=== PATIENT | female | born 1955 | race Caucasian/White ===

== ENCOUNTER 2021-12-19 13:46 | Emergency (ER) | payer OTHER, SELFPAY ==
[2021-12-19 13:56] VITALS: BP 127/69; PULSE 90; RESP 18; TEMP 36.8; O2SAT 94; BMI 30.7
--- NOTE | 2021-12-19 14:27 | ED.FALL ---
HPI - Fall <KULWANT Skinner - Last Filed: 12/19/21 15:16> General Chief Complaint: Fall Stated Complaint: fall and hit head bleeding Time Seen by Provider: 12/19/21 14:21 Source: patient Mode of arrival: Ambulatory History of Present Illness HPI Narrative: This is a pleasant 65-year-old female who presents to the emergency department stating that she tripped and fell forward onto her hands and knees and struck her right forehead on the edge of her yd waste cart. She has approximately 1 cm vertical laceration to the right forehead, states that it was bleeding quite a bit initially but applied a dressing, and is no longer bleeding. She is not on any anticoagulants, she denies any loss of consciousness, headache, difficulty concentrating, vision changes, dizziness, nausea, vomiting, weakness, seeing stars, or any other complaint. Patient states that she has a mild headache or pain at this forehead approximately 3/10. She is unsure of when her last tetanus was, she takes vitamins, Prilosec is her only medication. Patient denies any neck pain, back pain, other injury. States that her arms and legs have full range of motion without weakness. Related Data Allergies Allergy/AdvReac Type Severity Reaction Status Date / Time No Known Drug Allergies Allergy Verified 12/19/21 13:55 Review of Systems <KULWANT Skinner - Last Filed: 12/19/21 15:16> Review of Systems Narrative: General: denies fever, chills, malaise, sweats, fatigue, dizziness Head/Neck: denies headache, states that her right forehead hurts approximately 3/10, denies any neck pain, dizziness, small horizontal laceration to the lateral aspect of her right forehead Eyes: denies visual changes, eye pain Cardio: denies chest pain, palpitations, edema Respiratory: denies dyspnea, cough, orthopnea GI: denies abdominal pain, nausea, vomiting, or diarrhea : denies dysuria, hematuria, urinary retention, frequency or incontinence MSK: denies joint pain, muscle weakness Skin: denies rash, itching, skin lesions or other Neuro: denies numbness, tingling Patient History <KULWANT Skinner - Last Filed: 12/19/21 15:16> Social History Smoking Status: Never smoker Smoking Status: Never smoker alcohol intake frequency: a few times a week Substance Use Type: does not use Exam <KULWANT Skinner - Last Filed: 12/19/21 15:16> Narrative Exam Narrative: Independently reviewed vitals signs and nursing notes. General: cooperative, comfortable, in no acute distress, well developed and well groomed Head: atraumatic, symmetrical facial expressions, hematoma and small 1 cm laceration on a right lateral aspect of her forehead, laceration is horizontal, bleeding is controlled, is slight oozing from site. Neck: supple, atraumatic, without lymphadenopathy. Eyes: pupils equal round and reactive, EOMI, conjunctiva normal, patient denies any eye pain with eye movement, vision is grossly intact without any deficit Nose: nares patent, no rhinorrhea Mouth/Throat: uvula midline, moist mucus membranes Cardiovascular: regular rate and rhythm, no peripheral edema, warm extremities Respiratory: normal effort, able to speak in complete sentences, no audible wheezing, stridor, or rales. No retractions or tachypnea. MSK: moves all extremities, ambulatory w/steady gait, neurovascularly intact, no weakness Skin: brisk capillary refill, no rash, no erythema Neuro: normal speech and cognition, A&O x3, normal tone Psych: mental status is grossly normal, congruent mood, normal affect, pleasant and cooperative Initial Vital Signs Initial Vital Signs: Vital Signs Temperature 98.2 F 12/19/21 13:56 Pulse Rate 90 12/19/21 13:56 Respiratory Rate 18 12/19/21 13:56 Blood Pressure 127/69 12/19/21 13:56 Pulse Oximetry 94 12/19/21 13:56 <Eagle Ortiz MD - Last Filed: 12/23/21 07:22> Initial Vital Signs Initial Vital Signs: Vital Signs Temperature 98.2 F 12/19/21 13:56 Pulse Rate 90 12/19/21 13:56 Respiratory Rate 18 12/19/21 13:56 Blood Pressure 127/69 12/19/21 13:56 Pulse Oximetry 94 12/19/21 13:56 Procedures <KULWANT Skinner - Last Filed: 12/19/21 15:16> Laceration Repair Laceration 1: Site: face (right forehead) Side (If applicable): right Size (cm): 1 Description: linear and irregular Depth: simple, single layer Local Anesthetic: lidocaine 1%, with epi and with bicarb Amount of anesthesia used (mL): 2 Pre-repair: wound explored, irrigated extensively and deep structures intact Skin layer closed with: nylon Skin layer suture size: 6-0 Number of sutures: 2 Technique: simple, interrupted Scores <KULWANT Skinner - Last Filed: 12/19/21 15:16> [place] CT Head Rule Age <16 years old: No Patient on blood thinners: No Seizure after injury: No Exclusion: Patient NOT Excluded, Proceed to next steps GCS < 15 at 2 hr post trauma: No Suspected open or depressed skull fracture: No Any sign of basilar skull fracture (hemotympanum, raccoon eyes, Hathaway's sign, CSF alexei-/rhinorrhea): No Two or more episodes of vomiting: No Age greater or equal to 65 years: No Retrograde amnesia to the event greater or equal to 30 min: No Dangerous Mechanism (pedestrian vs. mv, occupant ejected from mv, fall from >3 ft or > 5 stairs): No Recommendation: CT unnecessary <Eagle Ortiz MD - Last Filed: 12/23/21 07:22> [place] CT Head Rule Exclusion: Patient NOT Excluded, Proceed to next steps Recommendation: CT unnecessary Course <KULWANT Skinner - Last Filed: 12/19/21 15:16> Orders Ordered: Discontinued Medications Acetaminophen (Acetaminophen 325 Mg Tablet) 975 mg PO NOW ONE Stop: 12/19/21 14:27 Last Admin: 12/19/21 14:33 Dose: 975 mg Documented by: BTKHADRA Acetaminophen (Acetaminophen 325 Mg Tablet) 975 mg PO NOW ONE Stop: 12/19/21 14:39 Last Admin: 12/19/21 14:44 Dose: Not Given Documented by: LEIGHTON Bacitracin (Bacitracin Oint 0.9 Gm Pckt) 1 applic TOP NOW ONE Stop: 12/19/21 14:27 Last Admin: 12/19/21 14:32 Dose: 1 applic Documented by: BTONER Diphtheria/Tetanus/Acell Pertussis (Tet,Diph,Pertuss(Acell),Vac/Pf 0.5 Ml Syringe) 0.5 ml IM .ONCE ONE Stop: 12/19/21 14:24 Last Admin: 12/19/21 14:32 Dose: 0.5 ml Documented by: BTONER Lidocaine/Epinephrine (Lidocaine 1% W/Epi) 1 ml SUBCUT NOW ONE Stop: 12/19/21 14:23 Last Admin: 12/19/21 14:31 Dose: 1 ml Documented by: BTONER Lidocaine/Sodium Bicarbonate (Lido 1%/Sod Bicarb 8.4% (10ml) 10 Ml Syringe) 10 ml INJ NOW ONE Stop: 12/19/21 14:23 Last Admin: 12/19/21 14:31 Dose: 10 ml Documented by: BTONER Vital Signs Vital signs: Vital Signs - 8 hr 12/19/21 13:56 12/19/21 15:02 Temperature 98.2 F Pulse Rate 90 78 Respiratory Rate 18 16 Blood Pressure 127/69 120/81 Pulse Oximetry 94 98 <Eagle Ortiz MD - Last Filed: 12/23/21 07:22> Orders Ordered: Discontinued Medications Acetaminophen (Acetaminophen 325 Mg Tablet) 975 mg PO NOW ONE Stop: 12/19/21 14:27 Last Admin: 12/19/21 14:33 Dose: 975 mg Documented by: BTONER Acetaminophen (Acetaminophen 325 Mg Tablet) 975 mg PO NOW ONE Stop: 12/19/21 14:39 Last Admin: 12/19/21 14:44 Dose: Not Given Documented by: RSTONE Bacitracin (Bacitracin Oint 0.9 Gm Pckt) 1 applic TOP NOW ONE Stop: 12/19/21 14:27 Last Admin: 12/19/21 14:32 Dose: 1 applic Documented by: BTONER Diphtheria/Tetanus/Acell Pertussis (Tet,Diph,Pertuss(Acell),Vac/Pf 0.5 Ml Syringe) 0.5 ml IM .ONCE ONE Stop: 12/19/21 14:24 Last Admin: 12/19/21 14:32 Dose: 0.5 ml Documented by: BTONER Lidocaine/Epinephrine (Lidocaine 1% W/Epi) 1 ml SUBCUT NOW ONE Stop: 12/19/21 14:23 Last Admin: 12/19/21 14:31 Dose: 1 ml Documented by: BTONER Lidocaine/Sodium Bicarbonate (Lido 1%/Sod Bicarb 8.4% (10ml) 10 Ml Syringe) 10 ml INJ NOW ONE Stop: 12/19/21 14:23 Last Admin: 12/19/21 14:31 Dose: 10 ml Documented by: ANDREY Vital Signs Vital signs: Vital Signs - 8 hr 12/19/21 13:56 12/19/21 15:02 Temperature 98.2 F Pulse Rate 90 78 Respiratory Rate 18 16 Blood Pressure 127/69 120/81 Pulse Oximetry 94 98 MDM - Fall <Ena VitalLYDIAP - Last Filed: 12/19/21 15:16> [facility] Narrative Medical decision making narrative: This is a pleasant 65-year-old female who was gardening this morning when she tripped on the curb and fell forward onto her knees and her hands striking her right forehead on her yard cart. Patient denies LOC, nausea vomiting, neck pain, vision changes, eye pain, or any other symptom. She had a small 1 cm laceration which is horizontal on her forehead, linear and slightly irregular. She has a small hematoma underneath the skin, wound was cleansed with normal saline, tetanus was updated, patient was sutured with 6 0 Ethilon x2 sutures, wound edges are well approximated. Patient understands to return to the emergency department for any worsening headache, nausea vomiting, neck pain, altered mental status, vision changes, signs of infection, or fever. She denies any of these things currently, we will have her sutures removed in 5 days, and follow-up with her primary doctor. Discussed symptoms of concussion, and things to look out for, encouraged rest, keeping her head elevated, Tylenol and ibuprofen as needed for pain/headache. Patient is appropriate and amenable to discharge home. Vital signs are stable on repeat examination is unremarkable. Patient has been informed of results. Patient has been given strict return to ER precautions for any new or worsening symptoms. Patient understands to follow up closely with outpatient providers as instructed. Patient understands plan and agrees to discharge home. All questions and concerns answered at this time. Discharge Plan Departure Patient Disposition: Home Clinical Impression: Fall Qualifiers: Encounter type: initial encounter Qualified Code(s): W19.XXXA - Unspecified fall, initial encounter Laceration of head Qualifiers: Encounter type: initial encounter Location of open wound of head: other part of head Foreign body presence: without foreign body Qualified Code(s): S01.81XA - Laceration without foreign body of other part of head, initial encounter Instructions: DI for Laceration Repair Activity Restrictions/Additional Instructions: *You have been diagnosed with a fall with a 1 cm laceration to your right forehead. Please keep this covered with a Band-Aid, you may use bacitracin or another topical antibiotic that you tolerate. Have your sutures removed in 5 days, you have 2 of them. Please shower like usual, do not scrub but it is okay to let the water over it and clean with a gentle cleanser. Please ice this area as you have a hematoma/blood under the skin, this will drain dependently. You likely have a black eye tomorrow. Please ice for 20 minutes 2 to 3 times a day for the next 1-2 days. Take Tylenol every 6 hours as needed for pain, you may take ibuprofen as well if you tolerate this okay. Please follow-up with your primary care provider for any other needs. If you have worsening headache, vomiting, signs of infection, eye pain with eye movement, vision changes, please return to the emergency department for another evaluation. If you notice that you have difficulty concentrating, brain fog, headache for persistent amount of time, this may be a concussion. Please rest, keep your head elevated for the next few days as much as possible and feel better soon. Thank you for trusting us with your care, it was a pleasure to meet you. *What to do: *Please continue to take your regular medications as directed. [ ] New medication prescriptions sent to your pharmacy: [ ] [ ] New medication written as a paper prescription [x ] No new medications given *Please follow up with your primary care provider in 2-3 days, call for an appointment. Let them know you were seen in the Emergency Department and that we asked that you be seen for follow-up. We will electronically transmit a record of today's note if your PCP is in our system *If you do not have a primary care provider please contact [phone] to establish care with one of the [facility] primary care providers. *Return to Emergency Department if you should have any new, worsening or concerning symptoms, such as [fever greater than 101F, chills, worsening pain, persistent vomiting or other bothersome symptoms] <Eagle Ortiz MD - Last Filed: 12/23/21 07:22> Cosign ED Attending Cosignature Attestation: I was immediately available in the department for consultation. This documentation has been reviewed and I agree with assessment and plan. Supervised by Eagle Ortiz MD
[2021-12-19] MEDS: LIDOCAINE 1% W/EPI 1 ML SUBCUT (14:31)
[2021-12-19] MEDS: LIDO 1%/SOD BICARB 8.4% (10ML) 10 ML SYRINGE INJ (14:31)
[2021-12-19] MEDS: TET,DIPH,PERTUSS(ACELL),VAC/PF 0.5 ML SYRINGE IM (14:32)
[2021-12-19] MEDS: BACITRACIN OINT 0.9 GM PCKT 1 APPLIC TOP (14:32)
[2021-12-19] MEDS: ACETAMINOPHEN 325 MG TABLET 975 MG PO (14:33)
--- NOTE | 2021-12-19 15:01 | PC.NURSE ---
did not see wound prior to PA suturing.
[2021-12-19 15:02] VITALS: BP 120/81; PULSE 78; RESP 16; O2SAT 98
== END 2021-12-19 15:10 | disposition home or self-care (01) ==
PROVIDERS: Emergency Provider Nurse Practitioner Critical Care Medicine
DX: S01.81XA Laceration without foreign body of other part of head, initial encounter (principal); W01.198A Fall on same level from slipping, tripping and stumbling with subsequent striking against other object, initial encounter; Y93.H2 Activity, gardening and landscaping; Z23 Encounter for immunization
CPT/HCPCS: 12011; 90471; 99283; 99284; 90715

== ENCOUNTER → 2023-07-19 15:36 | Outpatient (CLI) | payer OTHER, SELFPAY | PROVIDERS: Visit Provider Nurse Practitioner Family | DX: R30.0 Dysuria (principal) | CPT/HCPCS: 87077; 87086; 87186 ==

== ENCOUNTER → 2023-10-12 12:03 | Outpatient (CLI) | payer OTHER, SELFPAY | PROVIDERS: PCP Family Medicine; Visit Provider Nurse Practitioner Family | DX: R30.0 Dysuria (principal) | CPT/HCPCS: 87077; 87086; 87186; 87210 ==

== ENCOUNTER → 2023-11-15 14:04 | Outpatient (CLI) | payer OTHER, SELFPAY ==
[2023-11-15 14:20] LABS: Appearance Urine UA CLEAR; Bilirubin Urine UA NEGATIVE (NEGATIVE); Color Urine UA YELLOW; Glucose Urine UA NEGATIVE (Negative); Ketones Urine UA NEGATIVE (NEGATIVE); Leukocyte Esterase Urine UA 2+ (NEGATIVE); Nitrite Urine UA NEGATIVE (Negative); Occult Blood Urine UA TRACE-INTACT (Negative); Protein Urine UA NEGATIVE (Negative); Urobilinogen Urine UA 0.2 E.U./dL (0.2)
[2023-11-15 14:53] LABS: Bacteria Urine Many (>30); Culture Indicated Urine Specimen Cultured; RBC Urine None Seen (0-5/HPF); Squamous Epithelial Cell Urine None Seen (0-5/HPF); Urine Volume 10mL (spun); WBC Urine 0-1/HPF (0-5/HPF)
== END ==
PROVIDERS: PCP Family Medicine; Visit Provider Physician Assistant
DX: R30.0 Dysuria (principal)
CPT/HCPCS: 81001; 87077; 87086; 87186

== ENCOUNTER → 2023-12-11 07:58 | Outpatient (CLI) | payer OTHER, SELFPAY | PROVIDERS: PCP Family Medicine; Visit Provider Physician Assistant Medical | DX: R30.0 Dysuria (principal) | CPT/HCPCS: 87077; 87086 ==

== ENCOUNTER 2023-12-11 08:10 | Emergency (ER) | payer OTHER, SELFPAY ==
[2023-12-11 08:15] VITALS: BP 130/65; PULSE 74; RESP 18; TEMP 36.1; O2SAT 99
--- NOTE | 2023-12-11 08:41 | ED_ITS ---
HPI - General Adult General Chief complaint: Urogenital-Female Stated complaint: sent by [facility]/ Urinary retention Time Seen by Provider: 12/11/23 08:11 Source: patient Mode of arrival: Ambulatory Limitations: no limitations History of Present Illness HPI narrative: Patient is a 67-year-old female who was sent over from the walk-in clinic for evaluation of acute urinary retention. She has had issues with urinary tract infections in the past. Has currently on a daily Bactrim. Has also been treated earlier this month with a course of antibiotics. Does see urology. There was some question about potential prolapse as the cause of her issues. Back of the beginning of this month she was seen at the Urology Clinic where she had an in and out catheter because of urinary retention. She has never had an indwelling urinary catheter. She states the last time she that she urinated? normally? was 3-4 days ago. Right now she was just getting very small amounts of urine. Related Data Home Medications Medication Instructions Recorded Confirmed latanoprost 0.005 % eye drops drp EYE-BOTH 08/19/23 12/11/23 Previous Rx's Medication Instructions Recorded omeprazole 20 mg capsule,delayed 20 mg PO BID #180 caps 09/08/23 release sulfamethoxazole 800 1 tab PO DAILY #90 tabs 09/08/23 mg-trimethoprim 160 mg tablet cefdinir 300 mg capsule 300 mg PO BID #10 caps 10/13/23 nitrofurantoin macrocrystal 100 mg 100 mg PO BID #10 caps 10/14/23 capsule estradiol 2 mg (7.5 mcg/24 hour) 1 vag ring vaginal [id number] #1 ea 11/16/23 vaginal ring (Estring) Allergies Allergy/AdvReac Type Severity Reaction Status Date / Time No Known Drug Allergies Allergy Verified 12/11/23 07:56 Review of Systems Constitutional Constitutional: Reports system reviewed and no additional complaints, except as documented Gastrointestinal Gastrointestinal: Reports system reviewed and no additional complaints, except as documented Genitourinary Genitourinary: Reports system reviewed and no additional complaints, except as documented Integumentary/Breasts Skin/Breast: Reports system reviewed and no additional complaints, except as documented Patient History Social History (System 08/09/23 @ 08:17 by Shruti Kevin) Smoking Status: Never smoker Smoking Status: Never smoker alcohol intake frequency: a few times a week Substance Use Type: does not use Exam Initial Vital Signs Initial Vital Signs: Vital Signs Temperature 96.9 F L 12/11/23 08:15 Pulse Rate 74 12/11/23 08:15 Respiratory Rate 18 12/11/23 08:15 Blood Pressure 130/65 12/11/23 08:15 Pulse Oximetry 99 12/11/23 08:15 Oxygen Delivery Method Room Air 12/11/23 08:15 HENMT Head: normal to inspection and normocephalic Resp Effort & Inspection: normal respiratory effort Cardio Rate: regular rate GI Inspection: non-distended Course Orders Ordered: ED Orders 12/11/23 08:30 Urinalysis and Microscopic Stat Urine Culture Stat Vital Signs Vital signs: Vital Signs - 8 hr 12/11/23 08:15 Temperature 96.9 F L Pulse Rate 74 Respiratory Rate 18 Blood Pressure 130/65 Pulse Oximetry 99 Oxygen Delivery Method Room Air Medical Decision Making Medical Records Medical records reviewed: Yes I reviewed the patient's medical records. MDM Narrative Medical decision making narrative: Review of the medical record shows she has had Enterococcus and Klebsiella that appeared to be pansensitive. She was currently on a antibiotic. We will wait for the urine culture to resolve before treating with any antibiotics. She was retaining urine. She was nontoxic appearing. Will place a Greenberg catheter and leave in place and have her follow-up with urology. Discharge Plan Departure Patient Disposition: Home Clinical Impression: Urinary retention with incomplete bladder emptying Instructions: How to Care for Your Greenberg Catheter -- Female Activity Restrictions/Additional Instructions: I do recommend that you contact your urologist for a follow-up. We will wait for the urine culture to resolve before treating you with any antibiotics. Return to the emergency department for new or worsening symptoms. Prescriptions: No Action sulfamethoxazole-trimethoprim 800-160 mg tablet 1 tab PO DAILY Qty: 90 1RF omeprazole 20 mg capsule,delayed release(DR/EC) 20 mg PO BID Qty: 180 1RF cefdinir 300 mg capsule 300 mg PO BID Qty: 10 0RF nitrofurantoin macrocrystal 100 mg capsule 100 mg PO BID Qty: 10 0RF Rx Instructions: must administer with a meal/food Estring 2 mg (7.5 mcg /24 hour) ring 1 vag ring vaginal [id number] Qty: 1 3RF latanoprost 0.005 % drops EYE-BOTH Referrals: Laly Harvey DO [Primary Care Provider] - Stand Alone Forms: Patient Portal/API
[2023-12-11 09:40] VITALS: RESP 16; O2SAT 100
[2023-12-11 10:06] LABS: Appearance Urine UA CLOUDY; Bilirubin Urine UA NEGATIVE (NEGATIVE); Color Urine UA YELLOW; Glucose Urine UA NEGATIVE (Negative); Ketones Urine UA NEGATIVE (NEGATIVE); Leukocyte Esterase Urine UA NEGATIVE (NEGATIVE); Nitrite Urine UA POSITIVE (Negative); Occult Blood Urine UA NEGATIVE (Negative); Protein Urine UA NEGATIVE (Negative); Urobilinogen Urine UA 0.2 E.U./dL (0.2); pH Urine UA 7.5 (4.5-8.0)
[2023-12-11 10:16] LABS: Amorphous Sediment Urine 1+; Bacteria Urine Many (>30); RBC Urine None Seen (0-5/HPF); Squamous Epithelial Cell Urine None Seen (0-5/HPF); Urine Volume 10mL (spun); WBC Urine 0-1/HPF (0-5/HPF)
== END 2023-12-11 09:41 | disposition home or self-care (01) ==
PROVIDERS: Emergency Provider Emergency Medicine; PCP Family Medicine
DX: R33.9 Retention of urine, unspecified (principal); R30.0 Dysuria
CPT/HCPCS: 51702; 51798; 81001; 87077; 87086; 87186; 99283

== ENCOUNTER → 2023-12-29 08:44 | Outpatient (CLI) | payer OTHER, SELFPAY ==
--- NOTE | 2023-12-29 08:46 | DI.CT.S_ITS ---
PROCEDURE: CT KIDNEY URETER BLADDER (KUB) INDICATIONS: RENAL CALCIFICATION TECHNIQUE: Axial sections were acquired from the lung bases to the pubic symphysis. Coronal and sagittal reformats were performed. For radiation dose reduction, the following was used: automated exposure control, adjustment of mA and/or kV according to patient size. COMPARISON: [facility], CR, XR ABDOMEN 1 VIEW, 11/10/2023, 14:27. FINDINGS: Image quality: Diagnostic. Lower Chest: No significant findings. URINARY: Right Kidney: No stones or hydronephrosis. Right Ureter: No hydroureter. Left Kidney: No stones or hydronephrosis. Left Ureter: No hydroureter. Bladder: Normal wall thickness. No stones. ABDOMEN: Liver: Multiple cysts. Gallbladder: Not distended. Multiple gallstones. A larger gallstone measuring 1.5 cm. Biliary ducts: No biliary dilation. Pancreas: No ductal dilation. Spleen: Size is within normal limits. Adrenal Glands: No adrenal nodules. Stomach and Bowel: Normal colonic caliber, without significant wall thickening. Small duodenal diverticulum. A few colonic diverticuli. Normal appendix. Peritoneum: No abnormal intraperitoneal fluid. No free air. Ventral Wall: No hernia. Abdominal Nodes: No enlarged retroperitoneal or mesenteric lymph nodes. Vessels: Aorta and inferior vena cava are normal in size. PELVIS: Pelvic Organs: Anteverted uterus. Pelvic Nodes: Unremarkable. Miscellaneous: No inguinal hernias are seen. Bones: No suspicious osseous lesion. IMPRESSION: 1. No bladder or kidney stones. No hydronephrosis. 2. Multiple gallstones. Dictated by: Jay Carmona M.D. on 12/29/2023 at 9:29 Approved by: Jay Carmona M.D. on 12/29/2023 at 9:36
== END ==
LOC: CT 08:44
PROVIDERS: PCP Family Medicine; Referring Provider Physician Assistant Medical; Visit Provider Physician Assistant Medical
DX: N28.89 Other specified disorders of kidney and ureter (principal); K80.20 Calculus of gallbladder without cholecystitis without obstruction
CPT/HCPCS: 74176

== ENCOUNTER → 2023-12-29 08:46 | Outpatient (CLI) | payer OTHER, SELFPAY ==
[2023-12-29 09:41] LABS: Add Manual Diff / Slide Review NO; Basophils Absolute Auto 0 /uL (0-100); Basophils Percent Auto 0.7 % (0-2); Eosinophils Absolute Auto 200 /uL (0-450); Eosinophils Percent Auto 3.9 % (2-4); Hematocrit 41.8 % (36-46); Hemoglobin 13.9 g/dL (12.0-16.0); Lymphocytes Absolute Auto 1700 /uL (1100-4500); Lymphocytes Percent Auto 33.2 % (25-40); Mean Corpuscular HGB Conc 33.3 % (30-36); Mean Corpuscular Hemoglobin 31.3 PG (26-34); Monocytes Absolute Auto 400 /uL (0-900); Monocytes Percent Auto 8.1 % (3-14); Neutrophils Absolute Auto 2800 /uL (1500-7000); Neutrophils Percent Auto 54.1 % (50-75); Platelet Count 256 X10^3/uL (150-400); Red Blood Cell Count 4.45 X10^6/uL (4.0-5.2); Red Cell Distribution Width 14.5 % (11.6-14.8); White Blood Cell Count 5.1 X10^3/uL (4.5-11.0)
[2023-12-29 09:49] LABS: Hemoglobin A1C% w Est Avg Glu 5.6 % (4.0-6.0)
[2023-12-29 10:08] LABS: Alanine Aminotransferase 23 IU/L (<35); Albumin 4.1 g/dL (3.5-5.0); Albumin Globulin Ratio 1.5 (1.0-2.8); Alkaline Phosphatase 56 U/L (38-126); Aspartate Aminotransferase 28 IU/L (14-36); BUN Creatinine Ratio 16.7 (6-22); Bilirubin Total 0.7 mg/dL (0.2-1.3); Blood Urea Nitrogen 11 mg/dL (7-17); Calcium 9.2 mg/dL (8.4-10.2); Carbon Dioxide 25 mmol/L (22-32); Chloride 109 mmol/L (98-107); Cholesterol 258 mg/dL (140-199); Estimated Glomerular Filt Rate > 60 mL/min (>60); Globulin 2.8 g/dL (1.7-4.1); Glucose 99 mg/dL (80-110); HDL Cholesterol 82 mg/dL (40-60); HEMOLYSIS < 15 (0-50); LDL Cholesterol Calculated 162 mg/dL (<100); Potassium 4.3 mmol/L (3.4-5.1); Sodium 138 mmol/L (137-145); Total Protein 6.9 g/dL (6.3-8.2); Triglycerides 72 mg/dL (35-150)
== END ==
LOC: LAB 08:46
PROVIDERS: PCP Family Medicine; Referring Provider Family Medicine; Visit Provider Family Medicine
DX: R73.03 Prediabetes (principal)
CPT/HCPCS: 36415; 80053; 80061; 83036; 85025

== ENCOUNTER → 2023-12-30 10:58 | Outpatient (CLI) | payer OTHER, SELFPAY ==
[2023-12-31 14:01] LABS: Fecal Immunochemical Test Negative (Negative)
== END ==
PROVIDERS: PCP Family Medicine; Referring Provider Family Medicine; Visit Provider Family Medicine
DX: Z12.11 Encounter for screening for malignant neoplasm of colon (principal); R73.03 Prediabetes
CPT/HCPCS: 82274

== ENCOUNTER → 2024-04-12 07:59 | Outpatient (CLI) | payer OTHER, SELFPAY ==
--- NOTE | 2024-04-12 08:00 | DI.MG.S_ITS ---
BILATERAL DIGITAL SCREENING MAMMOGRAM 3D/2D WITH CAD: 04/12/2024 CLINICAL: Routine screening. Comparison is made to exams dated: 01/12/2023 mammogram, 06/09/2019 mammogram, and 06/16/2017 mammogram - Outside facility. There are scattered areas of fibroglandular density in both breasts (category b / 25%-50% glandular tissue). Current study was also evaluated with a Computer Aided Detection (CAD) system. There are benign calcifications in the left breast. No significant masses, calcifications, or other findings are seen in either breast. There has been no significant interval change. IMPRESSION: BENIGN There is no mammographic evidence of malignancy. A 1 year screening mammogram is recommended. Based on the Tyrer Cuzick model (a risk assessment model) the patient's lifetime risk is 5.3% and her 10 year risk is 2.8%. According to the ACR, ACS, and NCCN guidelines, an annual breast MRI exam along with mammogram is recommended if the patient's lifetime risk is 20% or greater. This exam was interpreted at Station ID: [id number]. NOTE: For mammograms, a report in lay terms will be sent to the patient. Approximately 15% of breast malignancies will not be visualized mammographically. In the management of a palpable breast mass, a negative mammogram must not discourage biopsy of a clinically suspicious lesion. Electronically Signed By: Kaia millard/michael:04/13/2024 09:57:39 letter sent: Normal Exam ACR BI-RADS Category 2: Benign Finding(s) [id number]
== END ==
PROVIDERS: PCP Family Medicine; Referring Provider Family Medicine; Visit Provider Family Medicine
DX: Z12.31 Encounter for screening mammogram for malignant neoplasm of breast (principal); R92.323 Mammographic fibroglandular density, bilateral breasts
CPT/HCPCS: 77063; 77067

== ENCOUNTER 2025-03-22 17:00 | Outpatient (RCR) | payer OTHER, SELFPAY ==
--- NOTE | 2025-01-18 17:32 | PT.OIE ---
Current Diagnoses Osteoarthritis of knee, unspecified (01/18/25) Pain in right knee (01/18/25) Pain in left knee (01/18/25) Past Medical History (Last Updated 01/02/25 @ 15:10 by Laly Harvey DO) Genitourinary syndrome of menopause Pelvic organ prolapse quantification stage 2 rectocele UTI (urinary tract infection) Visit Care Team Role Provider Type Laly Harvey DO Attending Provider Physician Family Provider Primary Care Provider Referring Provider Specialty: Family Practice Address: [address] [place] [address], [address], [facility] Email: [email or web address] Physical Therapy Initial Evaluation PT-OP-A Visit Information Start: 01/18/25 15:16 Freq: Status: Active Protocol: Document 01/18/25 15:17 CHILD PSYCHOLOGIST (Rec: 01/18/25 17:32 CHILD PSYCHOLOGIST Laptop) Out-Patient Physical Therapy Visit Information Visit Information Visit Type Initial Evaluation Visit Start Time 15:20 Visit Stop Time 16:20 Visit Number 1 Number of GLASS VIAL FILLER Visits 0 Evaluation Information Evaluation Date 01/18/25 Precautions Precautions N/A PT-OP-B Current Condition Start: 01/18/25 15:16 Freq: Status: Active Protocol: Document 01/18/25 15:17 CHILD PSYCHOLOGIST (Rec: 01/18/25 17:32 CHILD PSYCHOLOGIST Laptop) Current Condition History of Current Condition Onset Date >5 years ago Current Complaints B knee pain and inability to kneel and squat History of Current Condition 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 She feels limited in her knees. R knee has history of meniscus tear in 1992 without surgical repair, but over the past 5 years both knees have been hurting. Pt feels limited with gardening: kneeling down to weed. Is doing Silver Sneakers program a few times a week but the focus is on exercises in sitting or standing and not transitional movements. Pt reports she walks a lot each day on flat ground and has no problems, but has been avoiding elevation/uneven ground. On a daily basis reports no pain, 6/10 when kneeling, 4/10 when sitting with BLEs extended and supported after watching TV for an hour. Treatment Goals Patient/Caregiver Goals To be able to able to weed in garden and transfer on and off floor to play with grandchildren. To walk up 1 flight of stairs without holding on to railing. PT-OP-C Subjective Start: 01/18/25 15:16 Freq: Status: Active Protocol: Document 01/18/25 15:17 CHILD PSYCHOLOGIST (Rec: 01/18/25 17:32 CHILD PSYCHOLOGIST Laptop) Patient Questionnaires Lower Extremity Functional Scale LEFS Score 66/80 PT-OP-D Balance Start: 01/18/25 15:16 Freq: Status: Active Protocol: Document 01/18/25 15:17 CHILD PSYCHOLOGIST (Rec: 01/18/25 17:32 CHILD PSYCHOLOGIST Laptop) Balance Tests Single Limb Standing Single Limb- Right 10s with mod-high instability alt medial-lateral foot Single Limb- Left 16s with min-mod instability alt medial-lateral foot PT-OP-K Range of Motion Start: 01/18/25 15:16 Freq: Status: Active Protocol: Document 01/18/25 15:17 CHILD PSYCHOLOGIST (Rec: 01/18/25 17:32 CHILD PSYCHOLOGIST Laptop) Hip Goniometric Range of Motion Hip ROM Limitations Hip ROM Limitations Soft Tissue Tightness Comments 90/90 test for HS length R: 145 degrees L: 152 degrees Heel to buttock test for quad length R: 16 L: 10.5 Knee Goniometric Range of Motion Knee L Patient Position Supine Flexion Active (degrees) 120 Extension Passive (degrees) 3 Comments no pain with knee flex R Patient Position Supine Flexion Active (degrees) 110 Extension Passive (degrees) 5 Comments pain with knee flex PT-OP-M Strength Start: 01/18/25 15:16 Freq: Status: Active Protocol: Document 01/18/25 15:17 CHILD PSYCHOLOGIST (Rec: 01/18/25 17:32 CHILD PSYCHOLOGIST Laptop) Hip Strength Hip Manual Muscle Testing L Flexion (L2) 4+ Good+ Extension (S1) 3- Fair- Abduction 4 Good External Rotation 4 Good Internal Rotation 4+ Good+ R Flexion (L2) 4 Good Extension (S1) 3- Fair- Abduction 4- Good- External Rotation 4- Good- Internal Rotation 4+ Good+ Knee Strength Knee Manual Muscle Testing L Flexion (S2) 4 Good Extension (L3) 4+ Good+ R Flexion (S2) 4+ Good+ Extension (L3) 4+ Good+ Ankle/Foot Strength Ankle and Foot Manual Muscle Testing L Dorsiflexion (L4) 4+ Good+ Comments x5 single leg heel raises with moderate difficulty R Dorsiflexion (L4) 5 Normal Comments x5 single leg heel raises with minimal difficulty on last 3 PT-OP-Q Treatments Start: 01/18/25 15:16 Freq: Status: Active Protocol: Document 01/18/25 15:17 CHILD PSYCHOLOGIST (Rec: 01/18/25 17:32 CHILD PSYCHOLOGIST Laptop) Therapeutic Exercises Prone Exercises Quad Stretch Side bilateral Equipment Used Sheet Reps/Minutes 30s x1 Comments Added to HEP Standing Exercises Hip Ext Side bilateral Equipment Used support surface Reps/Minutes x10 Comments Added to HEP Hip Abd Side bilateral Equipment Used support surface Reps/Minutes x10 Comments Added to HEP Marching Side bilateral Equipment Used support surface Reps/Minutes x10 Comments Added to HEP PT-OP-T Assessment and Plan Start: 01/18/25 15:16 Freq: Status: Active Protocol: Document 01/18/25 15:17 CHILD PSYCHOLOGIST (Rec: 01/18/25 17:32 CHILD PSYCHOLOGIST Laptop) Physical Therapy Assessment Rehab Potential Rehabilitation Potential Excellent Evaluation Complexity Number of Personal Factors/Comorbidities 1-2 Number of Body Systems Impaired 1-2 Clinical Presentation at Evaluation Stable Impairments Impairments Balance,Functional Activities, Functional Mobility,Pain,ROM, Soft Tissue Mobility,Strength Goals 3 Impairment Strength Impairment Decreased BLE strength Short Term Goal (STG) Pt will demonstrate improved hip strength by performing x10 consecutive sit<>stands from 12 step without UEs STG Duration 6 weeks Custodial Goal (LTG) Pt will demonstrate improved hip strength by performing R and L half kneel to standing x3 consecutive each leg without UE support LTG Duration 12 weeks 2 Impairment Knee ROM Impairment Inability to kneel and squat onto floor Short Term Goal (STG) Pt will demonstrate improved R quad flexibility with prone heel to buttock length from 16 to 10 to improve function STG Duration 6 weeks Business Asst Goal (LTG) Pt will demonstrate improved B quad flexibility with prone heel to buttock length <or=6 to improve function LTG Duration 12 weeks 1 Impairment Balance Impairment SLS/stairs Short Term Goal (STG) Pt will improve R and L SLS time to 30s on uneven surface to improve balance and function STG Duration 6 weeks Custodial Goal (LTG) Pt will ascend/descend a flight of stairs (12) without use of HRs with reciprocal pattern LTG Duration 12 weeks Assessment Summary Assessment Pt presents with decreased functional mobility to be able to kneel on ground to pull weeds, get up and down from floor to play with grandchildren, and ascend/ descend stairs without use of UEs to support and with pain in B knees with deep squatting . Pt demonstrates decreased knee/hip ROM especially decreased B quad length, and decreased B knee/hip strength especially B glute max and med , and decreased balance with B decreased SLS L>R. Pt will highly benefit from skilled PT intervention to address deficits and improve functional mobility. Physical Therapy Plan Frequency and Duration Frequency of Treatment 2-3x/wk Duration of treatment (weeks) 12 Plan of Care Start Date 01/18/25 Plan of Care End Date 04/12/25 Therapeutic Interventions Therapeutic Interventions Balance Training,Gait Training ,Home Exercise Program,Joint Mobilizations,Manual Therapy, Neuromuscular Re-education, Patient/Caregiver Education, Soft Tissue Mobilization, Taping,Therapeutic Activities, Therapeutic Exercises Modalities Cold Pack/Ice Massage,Hot Packs,Infrared Therapy, Ultrasound Next Visit Focus/Plan Next Note Type Treatment Note Next Visit Plan Assess stair training, standing gastroc and HS stretching, 30s STS test, glute strengthening, review of HEP
--- NOTE | 2025-01-23 18:47 | PT.OTN ---
Current Diagnoses Osteoarthritis of knee, unspecified (01/23/25) Pain in right knee (01/23/25) Pain in left knee (01/23/25) Physical Therapy Treatment Note PT-OP-A Visit Information Start: 01/18/25 15:16 Freq: Status: Active Protocol: Document 01/23/25 15:11 LATHE MACHINE OPERATOR (Rec: 01/23/25 16:20 LATHE MACHINE OPERATOR Laptop) Out-Patient Physical Therapy Visit Information Visit Information Visit Type Treatment Note Visit Start Time 15:15 Visit Stop Time 16:08 Visit Number 2 Number of SANITARY LANDFILL OPERATOR Visits 0 Evaluation Information Evaluation Date 01/18/25 Precautions Precautions N/A PT-OP-B Current Condition Start: 01/18/25 15:16 Freq: Status: Active Protocol: Document 01/18/25 15:17 LATHE MACHINE OPERATOR (Rec: 01/18/25 17:32 LATHE MACHINE OPERATOR Laptop) Current Condition History of Current Condition Onset Date >5 years ago Current Complaints B knee pain and inability to kneel and squat History of 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 She feels limited in her knees. R knee has history of meniscus tear in 1992 without surgical repair, but over the past 5 years both knees have been hurting. Pt feels limited with gardening: kneeling down to weed. Is doing Silver Sneakers program a few times a week but the focus is on exercises in sitting or standing and not transitional movements. Pt reports she walks a lot each day on flat ground and has no problems, but has been avoiding elevation/uneven ground. On a daily basis reports no pain, 6/10 when kneeling, 4/10 when sitting with BLEs extended and supported after watching TV for an hour. Treatment Goals Patient/Caregiver To be able to able to weed in garden and transfer on Goals and off floor to play with grandchildren. To walk up 1 flight of stairs without holding on to railing. PT-OP-C Subjective Start: 01/18/25 15:16 Freq: Status: Active Protocol: Document 01/23/25 15:11 LATHE MACHINE OPERATOR (Rec: 01/23/25 16:20 LATHE MACHINE OPERATOR Laptop) OP-PT Subjective Patient Comments Patient Comments Pt reports PT-OP-D Balance Start: 01/18/25 15:16 Freq: Status: Active Protocol: Document 01/18/25 15:17 LATHE MACHINE OPERATOR (Rec: 01/18/25 17:32 LATHE MACHINE OPERATOR Laptop) Balance Tests Single Limb Standing Single Limb- Right 10s with mod-high instability alt medial-lateral foot Single Limb- Left 16s with min-mod instability alt medial-lateral foot PT-OP-K Range of Motion Start: 01/18/25 15:16 Freq: Status: Active Protocol: Document 01/18/25 15:17 LATHE MACHINE OPERATOR (Rec: 01/18/25 17:32 LATHE MACHINE OPERATOR Laptop) Hip Goniometric Range of Motion Hip ROM Limitations Hip ROM Limitations Soft Tissue Tightness Comments 90/90 test for HS length R: 145 degrees L: 152 degrees Heel to buttock test for quad length R: 16 L: 10.5 Knee Goniometric Range of Motion Knee L Patient Position Supine Flexion Active ( 120 degrees) Extension Passive ( 3 degrees) Comments no pain with knee flex R Patient Position Supine Flexion Active ( 110 degrees) Extension Passive ( 5 degrees) Comments pain with knee flex PT-OP-M Strength Start: 01/18/25 15:16 Freq: Status: Active Protocol: Document 01/18/25 15:17 LATHE MACHINE OPERATOR (Rec: 01/18/25 17:32 LATHE MACHINE OPERATOR Laptop) Hip Strength Hip Manual Muscle Testing L Flexion (L2) 4+ Good+ Extension (S1) 3- Fair- Abduction 4 Good External Rotation 4 Good Internal Rotation 4+ Good+ R Flexion (L2) 4 Good Extension (S1) 3- Fair- Abduction 4- Good- External Rotation 4- Good- Internal Rotation 4+ Good+ Knee Strength Knee Manual Muscle Testing L Flexion (S2) 4 Good Extension (L3) 4+ Good+ R Flexion (S2) 4+ Good+ Extension (L3) 4+ Good+ Ankle/Foot Strength Ankle and Foot Manual Muscle Testing L Dorsiflexion (L4) 4+ Good+ Comments x5 single leg heel raises with moderate difficulty R Dorsiflexion (L4) 5 Normal Comments x5 single leg heel raises with minimal difficulty on last 3 PT-OP-Q Treatments Start: 01/18/25 15:16 Freq: Status: Active Protocol: Document 01/23/25 15:11 LATHE MACHINE OPERATOR (Rec: 01/23/25 16:20 LATHE MACHINE OPERATOR Laptop) Cardio Equipment Recumbent Elliptical (NanoAntibiotics) Duration (Minutes) 5 Resistance L3 Seat Position 8 Other BLEs only for warm up Therapeutic Exercises Standing Exercises HS stretch Side bilateral Equipment Used 4 step Reps/Minutes 1 min x2 Comments Added to HEP with handout Gastroc Stretch Standing Exercise Wall stretch Name Side bilateral Reps/Minutes 1 min x2 Comments Added to HEP with handout Quad Stretch Side bilateral Equipment Used Standard height chair, wall for balance Reps/Minutes 1 min x2 each Comments Changed HEP position from prone to standing d/t ease Neuro Re-Education Treatment Balance Activities Stance on foam Details 1. Regular stance 2. Narrowed stance 3. Single leg step ups 2 step Surface foam Reps/Duration 1&2. 1 min each 3. x10 Comments No UE support, 3. stance leg on foam PT-OP-T Assessment and Plan Start: 01/18/25 15:16 Freq: Status: Active Protocol: Document 01/23/25 15:11 LATHE MACHINE OPERATOR (Rec: 01/23/25 16:20 LATHE MACHINE OPERATOR Laptop) Physical Therapy Assessment Goals 3 Impairment Strength Impairment Decreased BLE strength Short Term Goal (STG Pt will demonstrate improved hip strength by performing ) x10 consecutive sit<>stands from 12 step without UEs STG Duration 6 weeks Geriatric Assistant Goal (LTG) Pt will demonstrate improved hip strength by performing R and L half kneel to standing x3 consecutive each leg without UE support LTG Duration 12 weeks 2 Impairment Knee ROM Impairment Inability to kneel and squat onto floor Short Term Goal (STG Pt will demonstrate improved R quad flexibility with ) prone heel to buttock length from 16 to 10 to improve function STG Duration 6 weeks Longterm Goal (LTG) Pt will demonstrate improved B quad flexibility with prone heel to buttock length <or=6 to improve function LTG Duration 12 weeks 1 Impairment Balance Impairment SLS/stairs Short Term Goal (STG Pt will improve R and L SLS time to 30s on uneven ) surface to improve balance and function STG Duration 6 weeks Longterm Goal (LTG) Pt will ascend/descend a flight of stairs (12) without use of HRs with reciprocal pattern LTG Duration 12 weeks Assessment Summary Assessment Pt tolerated all new BLE stretches this session and added to HEP, tolerated balance exercises on foam to progress to SLS on foam STG. Physical Therapy Plan Frequency and Duration Frequency of 2-3x/wk Treatment Duration of 12 treatment (weeks) Plan of Care Start 01/18/25 Date Plan of Care End 04/12/25 Date Therapeutic Interventions Therapeutic Balance Training,Gait Training,Home Exercise Program, Interventions Joint Mobilizations,Manual Therapy,Neuromuscular Re- education,Patient/Caregiver Education,Soft Tissue Mobilization,Taping,Therapeutic Activities,Therapeutic Exercises Modalities Cold Pack/Ice Massage,Hot Packs,Infrared Therapy, Ultrasound Next Visit Focus/Plan Next Note Type Treatment Note Next Visit Plan 30s STS test, lunges, glute strengthening
--- NOTE | 2025-01-25 15:59 | PT.OTN ---
Current Diagnoses Osteoarthritis of knee, unspecified (01/25/25) Pain in right knee (01/25/25) Pain in left knee (01/25/25) Physical Therapy Treatment Note PT-OP-A Visit Information Start: 01/18/25 15:16 Freq: Status: Active Protocol: Document 01/25/25 15:09 BRIDAL GOWN FITTER (Rec: 01/25/25 15:59 BRIDAL GOWN FITTER Laptop) Out-Patient Physical Therapy Visit Information Visit Information Visit Type Treatment Note Visit Start Time 15:16 Visit Stop Time 15:55 Visit Number 3 Number of CORE INSERTER Visits 0 Evaluation Information Evaluation Date 01/18/25 Precautions Precautions N/A PT-OP-B Current Condition Start: 01/18/25 15:16 Freq: Status: Active Protocol: Document 01/18/25 15:17 BRIDAL GOWN FITTER (Rec: 01/18/25 17:32 BRIDAL GOWN FITTER Laptop) Current Condition History of Current Condition Onset Date >5 years ago Current Complaints B knee pain and inability to kneel and squat History of 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 She feels limited in her knees. R knee has history of meniscus tear in 1992 without surgical repair, but over the past 5 years both knees have been hurting. Pt feels limited with gardening: kneeling down to weed. Is doing Silver Sneakers program a few times a week but the focus is on exercises in sitting or standing and not transitional movements. Pt reports she walks a lot each day on flat ground and has no problems, but has been avoiding elevation/uneven ground. On a daily basis reports no pain, 6/10 when kneeling, 4/10 when sitting with BLEs extended and supported after watching TV for an hour. Treatment Goals Patient/Caregiver To be able to able to weed in garden and transfer on Goals and off floor to play with grandchildren. To walk up 1 flight of stairs without holding on to railing. PT-OP-C Subjective Start: 01/18/25 15:16 Freq: Status: Active Protocol: Document 01/25/25 15:09 BRIDAL GOWN FITTER (Rec: 01/25/25 15:59 BRIDAL GOWN FITTER Laptop) OP-PT Subjective Patient Comments Patient Comments Pt reports no pain today, has practiced her HEP and it has gone well and is getting better at establishing a routine. PT-OP-D Balance Start: 01/18/25 15:16 Freq: Status: Active Protocol: Document 01/18/25 15:17 BRIDAL GOWN FITTER (Rec: 01/18/25 17:32 BRIDAL GOWN FITTER Laptop) Balance Tests Single Limb Standing Single Limb- Right 10s with mod-high instability alt medial-lateral foot Single Limb- Left 16s with min-mod instability alt medial-lateral foot PT-OP-K Range of Motion Start: 01/18/25 15:16 Freq: Status: Active Protocol: Document 01/18/25 15:17 BRIDAL GOWN FITTER (Rec: 01/18/25 17:32 BRIDAL GOWN FITTER Laptop) Hip Goniometric Range of Motion Hip ROM Limitations Hip ROM Limitations Soft Tissue Tightness Comments 90/90 test for HS length R: 145 degrees L: 152 degrees Heel to buttock test for quad length R: 16 L: 10.5 Knee Goniometric Range of Motion Knee L Patient Position Supine Flexion Active ( 120 degrees) Extension Passive ( 3 degrees) Comments no pain with knee flex R Patient Position Supine Flexion Active ( 110 degrees) Extension Passive ( 5 degrees) Comments pain with knee flex PT-OP-M Strength Start: 01/18/25 15:16 Freq: Status: Active Protocol: Document 01/18/25 15:17 BRIDAL GOWN FITTER (Rec: 01/18/25 17:32 BRIDAL GOWN FITTER Laptop) Hip Strength Hip Manual Muscle Testing L Flexion (L2) 4+ Good+ Extension (S1) 3- Fair- Abduction 4 Good External Rotation 4 Good Internal Rotation 4+ Good+ R Flexion (L2) 4 Good Extension (S1) 3- Fair- Abduction 4- Good- External Rotation 4- Good- Internal Rotation 4+ Good+ Knee Strength Knee Manual Muscle Testing L Flexion (S2) 4 Good Extension (L3) 4+ Good+ R Flexion (S2) 4+ Good+ Extension (L3) 4+ Good+ Ankle/Foot Strength Ankle and Foot Manual Muscle Testing L Dorsiflexion (L4) 4+ Good+ Comments x5 single leg heel raises with moderate difficulty R Dorsiflexion (L4) 5 Normal Comments x5 single leg heel raises with minimal difficulty on last 3 PT-OP-Q Treatments Start: 01/18/25 15:16 Freq: Status: Active Protocol: Document 01/25/25 15:09 BRIDAL GOWN FITTER (Rec: 01/25/25 15:59 BRIDAL GOWN FITTER Laptop) Cardio Equipment Recumbent Elliptical (Biodex) Duration (Minutes) 6 Resistance L4 Seat Position 8 Other BLEs only for warm up Gym Equipment Shuttle Recovery 1. Details L1 TB around knees for glute med targeting Resistance 25 ([employer]y new bands) Shuttle Recovery Stable Platform Reps/Time 10x3 Therapeutic Exercises Supine Exercises SLR Side bilateral Reps/Minutes 10x2 Comments VC for breathing Bridges Reps/Minutes 10x2 Comments VC for core activation and breathing Therapeutic Activity Therapeutic Activity 30s STS Comments 18 chair without UEs: 5.5 PT-OP-T Assessment and Plan Start: 01/18/25 15:16 Freq: Status: Active Protocol: Document 01/25/25 15:09 BRIDAL GOWN FITTER (Rec: 01/25/25 15:59 BRIDAL GOWN FITTER Laptop) Physical Therapy Assessment Rehab Potential Rehabilitation Excellent Potential Impairments Impairments Balance,Functional Activities,Functional Mobility,Pain, ROM,Soft Tissue Mobility,Strength Goals 3 Impairment Strength Impairment Decreased BLE strength Short Term Goal (STG Pt will demonstrate improved hip strength by performing ) x10 consecutive sit<>stands from 12 step without UEs STG Duration 6 weeks Care Home Goal (LTG) Pt will demonstrate improved hip strength by performing R and L half kneel to standing x3 consecutive each leg without UE support LTG Duration 12 weeks 2 Impairment Knee ROM Impairment Inability to kneel and squat onto floor Short Term Goal (STG Pt will demonstrate improved R quad flexibility with ) prone heel to buttock length from 16 to 10 to improve function STG Duration 6 weeks Care Home Goal (LTG) Pt will demonstrate improved B quad flexibility with prone heel to buttock length <or=6 to improve function LTG Duration 12 weeks 1 Impairment Balance Impairment SLS/stairs Short Term Goal (STG Pt will improve R and L SLS time to 30s on uneven ) surface to improve balance and function STG Duration 6 weeks Metals Analyst Goal (LTG) Pt will ascend/descend a flight of stairs (12) without use of HRs with reciprocal pattern LTG Duration 12 weeks Progress Towards Goals Progress Towards Progressing Toward Goals Goals Assessment Summary Assessment Pt tolerated all new quad and glute exercises well this session with notable limited endurance of B quads. 30s STS test done from standard 18 chair and scored 5.5. Pt reports no pain at end of session. Physical Therapy Plan Frequency and Duration Frequency of 2-3x/wk Treatment Duration of 12 treatment (weeks) Plan of Care Start 01/18/25 Date Plan of Care End 04/12/25 Date Therapeutic Interventions Therapeutic Balance Training,Gait Training,Home Exercise Program, Interventions Joint Mobilizations,Manual Therapy,Neuromuscular Re- education,Patient/Caregiver Education,Soft Tissue Mobilization,Taping,Therapeutic Activities,Therapeutic Exercises Modalities Cold Pack/Ice Massage,Hot Packs,Infrared Therapy, Ultrasound Next Visit Focus/Plan Next Note Type Treatment Note Next Visit Plan Progressive sit<>stands from >18 mat table, lunges, shuttle recovery 35 lbs
--- NOTE | 2025-01-30 16:02 | PT.OTN ---
Current Diagnoses Osteoarthritis of knee, unspecified (01/30/25) Pain in right knee (01/30/25) Pain in left knee (01/30/25) Physical Therapy Treatment Note PT-OP-A Visit Information Start: 01/18/25 15:16 Freq: Status: Active Protocol: Document 01/30/25 15:13 TURBINE BLADE ASSEMBLER (Rec: 01/30/25 16:02 TURBINE BLADE ASSEMBLER Laptop) Out-Patient Physical Therapy Visit Information Visit Information Visit Type Treatment Note Visit Start Time 15:18 Visit Stop Time 16:00 Visit Number 4 Number of CHEF HEAD Visits 0 Evaluation Information Evaluation Date 01/18/25 Precautions Precautions N/A PT-OP-B Current Condition Start: 01/18/25 15:16 Freq: Status: Active Protocol: Document 01/18/25 15:17 TURBINE BLADE ASSEMBLER (Rec: 01/18/25 17:32 TURBINE BLADE ASSEMBLER Laptop) Current Condition History of Current Condition Onset Date >5 years ago Current Complaints B knee pain and inability to kneel and squat History of 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 She feels limited in her knees. R knee has history of meniscus tear in 1992 without surgical repair, but over the past 5 years both knees have been hurting. Pt feels limited with gardening: kneeling down to weed. Is doing Silver Sneakers program a few times a week but the focus is on exercises in sitting or standing and not transitional movements. Pt reports she walks a lot each day on flat ground and has no problems, but has been avoiding elevation/uneven ground. On a daily basis reports no pain, 6/10 when kneeling, 4/10 when sitting with BLEs extended and supported after watching TV for an hour. Treatment Goals Patient/Caregiver To be able to able to weed in garden and transfer on Goals and off floor to play with grandchildren. To walk up 1 flight of stairs without holding on to railing. PT-OP-C Subjective Start: 01/18/25 15:16 Freq: Status: Active Protocol: Document 01/30/25 15:13 TURBINE BLADE ASSEMBLER (Rec: 01/30/25 16:02 TURBINE BLADE ASSEMBLER Laptop) OP-PT Subjective Patient Comments Patient Comments Pt reports 0/10 pain currently. Pt also reports progress in ability to kneel on ground for 8-10 mins without pain this weekend. PT-OP-D Balance Start: 01/18/25 15:16 Freq: Status: Active Protocol: Document 01/18/25 15:17 TURBINE BLADE ASSEMBLER (Rec: 01/18/25 17:32 TURBINE BLADE ASSEMBLER Laptop) Balance Tests Single Limb Standing Single Limb- Right 10s with mod-high instability alt medial-lateral foot Single Limb- Left 16s with min-mod instability alt medial-lateral foot PT-OP-K Range of Motion Start: 01/18/25 15:16 Freq: Status: Active Protocol: Document 01/18/25 15:17 TURBINE BLADE ASSEMBLER (Rec: 01/18/25 17:32 TURBINE BLADE ASSEMBLER Laptop) Hip Goniometric Range of Motion Hip ROM Limitations Hip ROM Limitations Soft Tissue Tightness Comments 90/90 test for HS length R: 145 degrees L: 152 degrees Heel to buttock test for quad length R: 16 L: 10.5 Knee Goniometric Range of Motion Knee L Patient Position Supine Flexion Active ( 120 degrees) Extension Passive ( 3 degrees) Comments no pain with knee flex R Patient Position Supine Flexion Active ( 110 degrees) Extension Passive ( 5 degrees) Comments pain with knee flex PT-OP-M Strength Start: 01/18/25 15:16 Freq: Status: Active Protocol: Document 01/18/25 15:17 TURBINE BLADE ASSEMBLER (Rec: 01/18/25 17:32 TURBINE BLADE ASSEMBLER Laptop) Hip Strength Hip Manual Muscle Testing L Flexion (L2) 4+ Good+ Extension (S1) 3- Fair- Abduction 4 Good External Rotation 4 Good Internal Rotation 4+ Good+ R Flexion (L2) 4 Good Extension (S1) 3- Fair- Abduction 4- Good- External Rotation 4- Good- Internal Rotation 4+ Good+ Knee Strength Knee Manual Muscle Testing L Flexion (S2) 4 Good Extension (L3) 4+ Good+ R Flexion (S2) 4+ Good+ Extension (L3) 4+ Good+ Ankle/Foot Strength Ankle and Foot Manual Muscle Testing L Dorsiflexion (L4) 4+ Good+ Comments x5 single leg heel raises with moderate difficulty R Dorsiflexion (L4) 5 Normal Comments x5 single leg heel raises with minimal difficulty on last 3 PT-OP-Q Treatments Start: 01/18/25 15:16 Freq: Status: Active Protocol: Document 01/30/25 15:13 TURBINE BLADE ASSEMBLER (Rec: 01/30/25 16:02 TURBINE BLADE ASSEMBLER Laptop) Cardio Equipment Recumbent Bicycle Duration (Minutes) 5 Resistance L5 Other warm up to improve knee ROM and quad endurance Therapeutic Exercises Sidelying Exercises Clamshells Side bilateral Resistance gravity Reps/Minutes 10x2 B Comments self cueing of hand on hip to prevent roll back Sitting Exercises Sit<>Stands Side bilateral Equipment Used high low table, L1 TB Reps/Minutes x10 without TB, x10 with TB around knees Comments From 17.5 height Standing Exercises Lunges Standing Exercise Mini lunges Name Side bilateral Equipment Used bar for light balance support Reps/Minutes 10x2 Quad Stretch Side bilateral Equipment Used wall to support, 18 chair Reps/Minutes 1 min each Comments Discussed ways to progress by bending opposite knee or adding book under ft PT-OP-T Assessment and Plan Start: 01/18/25 15:16 Freq: Status: Active Protocol: Document 01/30/25 15:13 TURBINE BLADE ASSEMBLER (Rec: 01/30/25 16:02 TURBINE BLADE ASSEMBLER Laptop) Physical Therapy Assessment Rehab Potential Rehabilitation Excellent Potential Impairments Impairments Balance,Functional Activities,Functional Mobility,Pain, ROM,Soft Tissue Mobility,Strength Goals 3 Impairment Strength Impairment Decreased BLE strength Short Term Goal (STG Pt will demonstrate improved hip strength by performing ) x10 consecutive sit<>stands from 12 step without UEs STG Duration 6 weeks Snf Goal (LTG) Pt will demonstrate improved hip strength by performing R and L half kneel to standing x3 consecutive each leg without UE support LTG Duration 12 weeks 2 Impairment Knee ROM Impairment Inability to kneel and squat onto floor Short Term Goal (STG Pt will demonstrate improved R quad flexibility with ) prone heel to buttock length from 16 to 10 to improve function STG Duration 6 weeks Dermatologist Goal (LTG) Pt will demonstrate improved B quad flexibility with prone heel to buttock length <or=6 to improve function LTG Duration 12 weeks 1 Impairment Balance Impairment SLS/stairs Short Term Goal (STG Pt will improve R and L SLS time to 30s on uneven ) surface to improve balance and function STG Duration 6 weeks Snf Goal (LTG) Pt will ascend/descend a flight of stairs (12) without use of HRs with reciprocal pattern LTG Duration 12 weeks Progress Towards Goals Progress Towards Progressing Toward Goals Goals Assessment Summary Assessment Pt tolerated all exercises well but continues to demonstrate decreased endurance in leg muscles and weakness especially in B glute meds. Progressions made to HEP include decreasing UE support while performing standing hip exercises and decreasing height of chair prop during quad stretch. Continue BLE stretching and strengthening with endurance component. Physical Therapy Plan Frequency and Duration Frequency of 2-3x/wk Treatment Duration of 12 treatment (weeks) Plan of Care Start 01/18/25 Date Plan of Care End 04/12/25 Date Therapeutic Interventions Therapeutic Balance Training,Gait Training,Home Exercise Program, Interventions Joint Mobilizations,Manual Therapy,Neuromuscular Re- education,Patient/Caregiver Education,Soft Tissue Mobilization,Taping,Therapeutic Activities,Therapeutic Exercises Modalities Cold Pack/Ice Massage,Hot Packs,Infrared Therapy, Ultrasound Next Visit Focus/Plan Next Note Type Treatment Note Next Visit Plan Progressive sit<>stands from <17.5 surface with TB around knees, modified SLS on foam, shuttle recovery 35 lbs
--- NOTE | 2025-02-01 19:27 | PT.OTN ---
Current Diagnoses Osteoarthritis of knee, unspecified (02/01/25) Pain in right knee (02/01/25) Pain in left knee (02/01/25) Physical Therapy Treatment Note PT-OP-A Visit Information Start: 01/18/25 15:16 Freq: Status: Active Protocol: Document 02/01/25 15:21 APPLICATION DEVELOPMENT CONSULTANT (Rec: 02/01/25 16:15 APPLICATION DEVELOPMENT CONSULTANT Laptop) Out-Patient Physical Therapy Visit Information Visit Information Visit Type Treatment Note Visit Start Time 15:20 Visit Stop Time 16:00 Visit Number 5 Number of SOYBEAN GROWER Visits 0 Evaluation Information Evaluation Date 01/18/25 Precautions Precautions N/A PT-OP-B Current Condition Start: 01/18/25 15:16 Freq: Status: Active Protocol: Document 01/18/25 15:17 APPLICATION DEVELOPMENT CONSULTANT (Rec: 01/18/25 17:32 APPLICATION DEVELOPMENT CONSULTANT Laptop) Current Condition History of Current Condition Onset Date >5 years ago Current Complaints B knee pain and inability to kneel and squat History of 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 She feels limited in her knees. R knee has history of meniscus tear in 1992 without surgical repair, but over the past 5 years both knees have been hurting. Pt feels limited with gardening: kneeling down to weed. Is doing Silver Sneakers program a few times a week but the focus is on exercises in sitting or standing and not transitional movements. Pt reports she walks a lot each day on flat ground and has no problems, but has been avoiding elevation/uneven ground. On a daily basis reports no pain, 6/10 when kneeling, 4/10 when sitting with BLEs extended and supported after watching TV for an hour. Treatment Goals Patient/Caregiver To be able to able to weed in garden and transfer on Goals and off floor to play with grandchildren. To walk up 1 flight of stairs without holding on to railing. PT-OP-C Subjective Start: 01/18/25 15:16 Freq: Status: Active Protocol: Document 02/01/25 15:21 APPLICATION DEVELOPMENT CONSULTANT (Rec: 02/01/25 16:15 APPLICATION DEVELOPMENT CONSULTANT Laptop) OP-PT Subjective Patient Comments Patient Comments Pt reports she felt soreness after last session in B knees and quads but was tolerable and did not limit her function the next day. 0/10 pain currently PT-OP-D Balance Start: 01/18/25 15:16 Freq: Status: Active Protocol: Document 01/18/25 15:17 APPLICATION DEVELOPMENT CONSULTANT (Rec: 01/18/25 17:32 APPLICATION DEVELOPMENT CONSULTANT Laptop) Balance Tests Single Limb Standing Single Limb- Right 10s with mod-high instability alt medial-lateral foot Single Limb- Left 16s with min-mod instability alt medial-lateral foot PT-OP-K Range of Motion Start: 01/18/25 15:16 Freq: Status: Active Protocol: Document 01/18/25 15:17 APPLICATION DEVELOPMENT CONSULTANT (Rec: 01/18/25 17:32 APPLICATION DEVELOPMENT CONSULTANT Laptop) Hip Goniometric Range of Motion Hip ROM Limitations Hip ROM Limitations Soft Tissue Tightness Comments 90/90 test for HS length R: 145 degrees L: 152 degrees Heel to buttock test for quad length R: 16 L: 10.5 Knee Goniometric Range of Motion Knee L Patient Position Supine Flexion Active ( 120 degrees) Extension Passive ( 3 degrees) Comments no pain with knee flex R Patient Position Supine Flexion Active ( 110 degrees) Extension Passive ( 5 degrees) Comments pain with knee flex PT-OP-M Strength Start: 01/18/25 15:16 Freq: Status: Active Protocol: Document 01/18/25 15:17 APPLICATION DEVELOPMENT CONSULTANT (Rec: 01/18/25 17:32 APPLICATION DEVELOPMENT CONSULTANT Laptop) Hip Strength Hip Manual Muscle Testing L Flexion (L2) 4+ Good+ Extension (S1) 3- Fair- Abduction 4 Good External Rotation 4 Good Internal Rotation 4+ Good+ R Flexion (L2) 4 Good Extension (S1) 3- Fair- Abduction 4- Good- External Rotation 4- Good- Internal Rotation 4+ Good+ Knee Strength Knee Manual Muscle Testing L Flexion (S2) 4 Good Extension (L3) 4+ Good+ R Flexion (S2) 4+ Good+ Extension (L3) 4+ Good+ Ankle/Foot Strength Ankle and Foot Manual Muscle Testing L Dorsiflexion (L4) 4+ Good+ Comments x5 single leg heel raises with moderate difficulty R Dorsiflexion (L4) 5 Normal Comments x5 single leg heel raises with minimal difficulty on last 3 PT-OP-Q Treatments Start: 01/18/25 15:16 Freq: Status: Active Protocol: Document 02/01/25 15:21 APPLICATION DEVELOPMENT CONSULTANT (Rec: 02/01/25 16:15 APPLICATION DEVELOPMENT CONSULTANT Laptop) Cardio Equipment Recumbent Bicycle Duration (Minutes) 7 Resistance L5 Other warm up Therapeutic Exercises Supine Exercises Stretch Supine Exercise Name Hip flexors off end of table Side bilateral Reps/Minutes 60sx2 Sitting Exercises Sit<>Stands Sitting Exercise 1. 16 step with 2 foam 2. 16 step Name Side bilateral Equipment Used L2 TB Reps/Minutes x10 from 18, 5x2 from 16 step Comments TB around knees with VC to keep knees apart, long rest break between sets PT-OP-T Assessment and Plan Start: 01/18/25 15:16 Freq: Status: Active Protocol: Document 02/01/25 15:21 APPLICATION DEVELOPMENT CONSULTANT (Rec: 02/01/25 16:15 APPLICATION DEVELOPMENT CONSULTANT Laptop) Physical Therapy Assessment Goals 3 Impairment Strength Impairment Decreased BLE strength Short Term Goal (STG Pt will demonstrate improved hip strength by performing ) x10 consecutive sit<>stands from 12 step without UEs STG Duration 6 weeks Truck Operator Goal (LTG) Pt will demonstrate improved hip strength by performing R and L half kneel to standing x3 consecutive each leg without UE support LTG Duration 12 weeks 2 Impairment Knee ROM Impairment Inability to kneel and squat onto floor Short Term Goal (STG Pt will demonstrate improved R quad flexibility with ) prone heel to buttock length from 16 to 10 to improve function STG Duration 6 weeks Truck Operator Goal (LTG) Pt will demonstrate improved B quad flexibility with prone heel to buttock length <or=6 to improve function LTG Duration 12 weeks 1 Impairment Balance Impairment SLS/stairs Short Term Goal (STG Pt will improve R and L SLS time to 30s on uneven ) surface to improve balance and function STG Duration 6 weeks Truck Operator Goal (LTG) Pt will ascend/descend a flight of stairs (12) without use of HRs with reciprocal pattern LTG Duration 12 weeks Progress Towards Goals Progress Towards Progressing Toward Goals Goals Assessment Summary Assessment Pt demonstrated progression with sit<>stands from 16 surface this session although with decreased form. During supine hip flexor stretching pt reported onset of dizziness and BP taken at114/77 which is her normal. Pt continues to demonstrate progress with strength, endurance, and ROM however still requires skilled PT to continue progressing towards goals. Physical Therapy Plan Frequency and Duration Frequency of 2-3x/wk Treatment Duration of 12 treatment (weeks) Plan of Care Start 01/18/25 Date Plan of Care End 04/12/25 Date Therapeutic Interventions Therapeutic Balance Training,Gait Training,Home Exercise Program, Interventions Joint Mobilizations,Manual Therapy,Neuromuscular Re- education,Patient/Caregiver Education,Soft Tissue Mobilization,Taping,Therapeutic Activities,Therapeutic Exercises Modalities Cold Pack/Ice Massage,Hot Packs,Infrared Therapy, Ultrasound Next Visit Focus/Plan Next Note Type Treatment Note Next Visit Plan modified SLS on foam, shuttle recovery 35 lbs, lunges, HS and quad exercises
--- NOTE | 2025-02-08 21:27 | PT.OTN ---
Current Diagnoses Osteoarthritis of knee, unspecified (02/08/25) Pain in right knee (02/08/25) Pain in left knee (02/08/25) Physical Therapy Treatment Note PT-OP-A Visit Information Start: 01/18/25 15:16 Freq: Status: Active Protocol: Document 02/08/25 13:01 COORDINATE MEASURING MACHINE TECHNICIAN (Rec: 02/08/25 13:48 COORDINATE MEASURING MACHINE TECHNICIAN Laptop) Out-Patient Physical Therapy Visit Information Visit Information Visit Type Treatment Note Visit Start Time 13:04 Visit Stop Time 13:45 Visit Number 6 Number of FIRE CHIEF Visits 0 Evaluation Information Evaluation Date 01/18/25 Precautions Precautions N/A PT-OP-B Current Condition Start: 01/18/25 15:16 Freq: Status: Active Protocol: Document 01/18/25 15:17 COORDINATE MEASURING MACHINE TECHNICIAN (Rec: 01/18/25 17:32 COORDINATE MEASURING MACHINE TECHNICIAN Laptop) Current Condition History of Current Condition Onset Date >5 years ago Current Complaints B knee pain and inability to kneel and squat History of 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 She feels limited in her knees. R knee has history of meniscus tear in 1992 without surgical repair, but over the past 5 years both knees have been hurting. Pt feels limited with gardening: kneeling down to weed. Is doing Silver Sneakers program a few times a week but the focus is on exercises in sitting or standing and not transitional movements. Pt reports she walks a lot each day on flat ground and has no problems, but has been avoiding elevation/uneven ground. On a daily basis reports no pain, 6/10 when kneeling, 4/10 when sitting with BLEs extended and supported after watching TV for an hour. Treatment Goals Patient/Caregiver To be able to able to weed in garden and transfer on Goals and off floor to play with grandchildren. To walk up 1 flight of stairs without holding on to railing. PT-OP-C Subjective Start: 01/18/25 15:16 Freq: Status: Active Protocol: Document 02/08/25 13:01 COORDINATE MEASURING MACHINE TECHNICIAN (Rec: 02/08/25 13:48 COORDINATE MEASURING MACHINE TECHNICIAN Laptop) OP-PT Subjective Patient Comments Patient Comments Pt reports HEP has been going well, reports 0/10 pain. Reports slightly less stiffness when getting out of bed each morning. PT-OP-D Balance Start: 01/18/25 15:16 Freq: Status: Active Protocol: Document 01/18/25 15:17 COORDINATE MEASURING MACHINE TECHNICIAN (Rec: 01/18/25 17:32 COORDINATE MEASURING MACHINE TECHNICIAN Laptop) Balance Tests Single Limb Standing Single Limb- Right 10s with mod-high instability alt medial-lateral foot Single Limb- Left 16s with min-mod instability alt medial-lateral foot PT-OP-K Range of Motion Start: 01/18/25 15:16 Freq: Status: Active Protocol: Document 01/18/25 15:17 COORDINATE MEASURING MACHINE TECHNICIAN (Rec: 01/18/25 17:32 COORDINATE MEASURING MACHINE TECHNICIAN Laptop) Hip Goniometric Range of Motion Hip ROM Limitations Hip ROM Limitations Soft Tissue Tightness Comments 90/90 test for HS length R: 145 degrees L: 152 degrees Heel to buttock test for quad length R: 16 L: 10.5 Knee Goniometric Range of Motion Knee L Patient Position Supine Flexion Active ( 120 degrees) Extension Passive ( 3 degrees) Comments no pain with knee flex R Patient Position Supine Flexion Active ( 110 degrees) Extension Passive ( 5 degrees) Comments pain with knee flex PT-OP-M Strength Start: 01/18/25 15:16 Freq: Status: Active Protocol: Document 01/18/25 15:17 COORDINATE MEASURING MACHINE TECHNICIAN (Rec: 01/18/25 17:32 COORDINATE MEASURING MACHINE TECHNICIAN Laptop) Hip Strength Hip Manual Muscle Testing L Flexion (L2) 4+ Good+ Extension (S1) 3- Fair- Abduction 4 Good External Rotation 4 Good Internal Rotation 4+ Good+ R Flexion (L2) 4 Good Extension (S1) 3- Fair- Abduction 4- Good- External Rotation 4- Good- Internal Rotation 4+ Good+ Knee Strength Knee Manual Muscle Testing L Flexion (S2) 4 Good Extension (L3) 4+ Good+ R Flexion (S2) 4+ Good+ Extension (L3) 4+ Good+ Ankle/Foot Strength Ankle and Foot Manual Muscle Testing L Dorsiflexion (L4) 4+ Good+ Comments x5 single leg heel raises with moderate difficulty R Dorsiflexion (L4) 5 Normal Comments x5 single leg heel raises with minimal difficulty on last 3 PT-OP-Q Treatments Start: 01/18/25 15:16 Freq: Status: Active Protocol: Document 02/08/25 13:01 COORDINATE MEASURING MACHINE TECHNICIAN (Rec: 02/08/25 13:48 COORDINATE MEASURING MACHINE TECHNICIAN Laptop) Cardio Equipment Recumbent Bicycle Duration (Minutes) 8 Resistance L6 Other bike for warm up Gym Equipment Shuttle Recovery 1. Details L1 TB around knees for glute med targeting Resistance 50# Shuttle Recovery Stable Platform Reps/Time 20 Therapeutic Exercises Standing Exercises Lunges Standing Exercise Mini lunges Name Side bilateral Equipment Used bar for light balance support Reps/Minutes x10 each leg Comments VC for core activation Neuro Re-Education Treatment Balance Activities Stance on foam Details SLS Surface foam Equipment HRs for intermittent support as needed Comments R 15s +23s with intermittent mod fingertip support L 13s +16s with intermittent light fingertip support PT-OP-T Assessment and Plan Start: 01/18/25 15:16 Freq: Status: Active Protocol: Document 02/08/25 13:01 COORDINATE MEASURING MACHINE TECHNICIAN (Rec: 02/08/25 13:48 COORDINATE MEASURING MACHINE TECHNICIAN Laptop) Physical Therapy Assessment Impairments Impairments Balance,Functional Activities,Functional Mobility,Pain, ROM,Soft Tissue Mobility,Strength Goals 3 Impairment Strength Impairment Decreased BLE strength Short Term Goal (STG Pt will demonstrate improved hip strength by performing ) x10 consecutive sit<>stands from 12 step without UEs STG Duration 6 weeks Jail Goal (LTG) Pt will demonstrate improved hip strength by performing R and L half kneel to standing x3 consecutive each leg without UE support LTG Duration 12 weeks 2 Impairment Knee ROM Impairment Inability to kneel and squat onto floor Short Term Goal (STG Pt will demonstrate improved R quad flexibility with ) prone heel to buttock length from 16 to 10 to improve function STG Duration 6 weeks Jail Goal (LTG) Pt will demonstrate improved B quad flexibility with prone heel to buttock length <or=6 to improve function LTG Duration 12 weeks 1 Impairment Balance Impairment SLS/stairs Short Term Goal (STG Pt will improve R and L SLS time to 30s on uneven ) surface to improve balance and function STG Duration 6 weeks Seed Laboratory Technician Goal (LTG) Pt will ascend/descend a flight of stairs (12) without use of HRs with reciprocal pattern LTG Duration 12 weeks Progress Towards Goals Progress Towards Progressing Toward Goals Goals Progress Comments reports less stiffness each morning Assessment Summary Assessment Pt demonstrates improvement in BLE strength and endurance and balance via SLS on foam, required many seated rest breaks d/t fatigue/dizziness this session. Advised pt to increase water intake. Physical Therapy Plan Frequency and Duration Frequency of 2-3x/wk Treatment Duration of 12 treatment (weeks) Plan of Care Start 01/18/25 Plan of Care End 04/12/25 Date Therapeutic Interventions Therapeutic Balance Training,Gait Training,Home Exercise Program, Interventions Joint Mobilizations,Manual Therapy,Neuromuscular Re- education,Patient/Caregiver Education,Soft Tissue Mobilization,Taping,Therapeutic Activities,Therapeutic Exercises Modalities Cold Pack/Ice Massage,Hot Packs,Infrared Therapy, Ultrasound Next Visit Focus/Plan Next Note Type Treatment Note Next Visit Plan standing hip hikes, sit<>stands from 12 box, HS curls
--- NOTE | 2025-02-08 21:30 | PT.OTN ---
Current Diagnoses Osteoarthritis of knee, unspecified (02/08/25) Pain in right knee (02/08/25) Pain in left knee (02/08/25) Physical Therapy Treatment Note PT-OP-A Visit Information Start: 01/18/25 15:16 Freq: Status: Active Protocol: Document 02/08/25 13:01 AUTOMOTIVE PARTS COORDINATOR (Rec: 02/08/25 13:48 AUTOMOTIVE PARTS COORDINATOR Laptop) Out-Patient Physical Therapy Visit Information Visit Information Visit Type Treatment Note Visit Start Time 13:04 Visit Stop Time 13:45 Visit Number 6 Number of RECONCILIATION ANALYST Visits 0 Evaluation Information Evaluation Date 01/18/25 Precautions Precautions N/A PT-OP-B Current Condition Start: 01/18/25 15:16 Freq: Status: Active Protocol: Document 01/18/25 15:17 AUTOMOTIVE PARTS COORDINATOR (Rec: 01/18/25 17:32 AUTOMOTIVE PARTS COORDINATOR Laptop) Current Condition History of Current Condition Onset Date >5 years ago Current Complaints B knee pain and inability to kneel and squat History of 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 She feels limited in her knees. R knee has history of meniscus tear in 1992 without surgical repair, but over the past 5 years both knees have been hurting. Pt feels limited with gardening: kneeling down to weed. Is doing Silver Sneakers program a few times a week but the focus is on exercises in sitting or standing and not transitional movements. Pt reports she walks a lot each day on flat ground and has no problems, but has been avoiding elevation/uneven ground. On a daily basis reports no pain, 6/10 when kneeling, 4/10 when sitting with BLEs extended and supported after watching TV for an hour. Treatment Goals Patient/Caregiver To be able to able to weed in garden and transfer on Goals and off floor to play with grandchildren. To walk up 1 flight of stairs without holding on to railing. PT-OP-C Subjective Start: 01/18/25 15:16 Freq: Status: Active Protocol: Document 02/08/25 13:01 AUTOMOTIVE PARTS COORDINATOR (Rec: 02/08/25 13:48 AUTOMOTIVE PARTS COORDINATOR Laptop) OP-PT Subjective Patient Comments Patient Comments Pt reports HEP has been going well, reports 0/10 pain. Reports slightly less stiffness when getting out of bed each morning. PT-OP-D Balance Start: 01/18/25 15:16 Freq: Status: Active Protocol: Document 01/18/25 15:17 AUTOMOTIVE PARTS COORDINATOR (Rec: 01/18/25 17:32 AUTOMOTIVE PARTS COORDINATOR Laptop) Balance Tests Single Limb Standing Single Limb- Right 10s with mod-high instability alt medial-lateral foot Single Limb- Left 16s with min-mod instability alt medial-lateral foot PT-OP-K Range of Motion Start: 01/18/25 15:16 Freq: Status: Active Protocol: Document 01/18/25 15:17 AUTOMOTIVE PARTS COORDINATOR (Rec: 01/18/25 17:32 AUTOMOTIVE PARTS COORDINATOR Laptop) Hip Goniometric Range of Motion Hip ROM Limitations Hip ROM Limitations Soft Tissue Tightness Comments 90/90 test for HS length R: 145 degrees L: 152 degrees Heel to buttock test for quad length R: 16 L: 10.5 Knee Goniometric Range of Motion Knee L Patient Position Supine Flexion Active ( 120 degrees) Extension Passive ( 3 degrees) Comments no pain with knee flex R Patient Position Supine Flexion Active ( 110 degrees) Extension Passive ( 5 degrees) Comments pain with knee flex PT-OP-M Strength Start: 01/18/25 15:16 Freq: Status: Active Protocol: Document 01/18/25 15:17 AUTOMOTIVE PARTS COORDINATOR (Rec: 01/18/25 17:32 AUTOMOTIVE PARTS COORDINATOR Laptop) Hip Strength Hip Manual Muscle Testing L Flexion (L2) 4+ Good+ Extension (S1) 3- Fair- Abduction 4 Good External Rotation 4 Good Internal Rotation 4+ Good+ R Flexion (L2) 4 Good Extension (S1) 3- Fair- Abduction 4- Good- External Rotation 4- Good- Internal Rotation 4+ Good+ Knee Strength Knee Manual Muscle Testing L Flexion (S2) 4 Good Extension (L3) 4+ Good+ R Flexion (S2) 4+ Good+ Extension (L3) 4+ Good+ Ankle/Foot Strength Ankle and Foot Manual Muscle Testing L Dorsiflexion (L4) 4+ Good+ Comments x5 single leg heel raises with moderate difficulty R Dorsiflexion (L4) 5 Normal Comments x5 single leg heel raises with minimal difficulty on last 3 PT-OP-Q Treatments Start: 01/18/25 15:16 Freq: Status: Active Protocol: Document 02/08/25 13:01 AUTOMOTIVE PARTS COORDINATOR (Rec: 02/08/25 13:48 AUTOMOTIVE PARTS COORDINATOR Laptop) Cardio Equipment Recumbent Bicycle Duration (Minutes) 8 Resistance L6 Other bike for warm up Gym Equipment Shuttle Recovery 1. Details L1 TB around knees for glute med targeting Resistance 50# Shuttle Recovery Stable Platform Reps/Time 20 Therapeutic Exercises Standing Exercises Lunges Standing Exercise Mini lunges Name Side bilateral Equipment Used bar for light balance support Reps/Minutes x10 each leg Comments VC for core activation Hip Ext Standing Exercise HEP progression Name Side bilateral Resistance L1 TB Equipment Used support surface Reps/Minutes x10 Comments Updated HEP, edu on placement of anchor and distance from band Hip Abd Standing Exercise HEP progression Name Side bilateral Equipment Used support surface Reps/Minutes x10 Comments Updated HEP, edu on placement of anchor and distance from band Marching Standing Exercise HEP progression Name Side bilateral Equipment Used support surface Reps/Minutes x10 Comments Updated HEP, edu on placement of anchor and distance from band Neuro Re-Education Treatment Balance Activities Stance on foam Details SLS Surface foam Equipment HRs for intermittent support as needed Comments R 15s +23s with intermittent mod fingertip support L 13s +16s with intermittent light fingertip support PT-OP-T Assessment and Plan Start: 01/18/25 15:16 Freq: Status: Active Protocol: Document 02/08/25 13:01 AUTOMOTIVE PARTS COORDINATOR (Rec: 02/08/25 13:48 AUTOMOTIVE PARTS COORDINATOR Laptop) Physical Therapy Assessment Impairments Impairments Balance,Functional Activities,Functional Mobility,Pain, ROM,Soft Tissue Mobility,Strength Goals 3 Impairment Strength Impairment Decreased BLE strength Short Term Goal (STG Pt will demonstrate improved hip strength by performing ) x10 consecutive sit<>stands from 12 step without UEs STG Duration 6 weeks Custodial Goal (LTG) Pt will demonstrate improved hip strength by performing R and L half kneel to standing x3 consecutive each leg without UE support LTG Duration 12 weeks 2 Impairment Knee ROM Impairment Inability to kneel and squat onto floor Short Term Goal (STG Pt will demonstrate improved R quad flexibility with ) prone heel to buttock length from 16 to 10 to improve function STG Duration 6 weeks Custodial Goal (LTG) Pt will demonstrate improved B quad flexibility with prone heel to buttock length <or=6 to improve function LTG Duration 12 weeks 1 Impairment Balance Impairment SLS/stairs Short Term Goal (STG Pt will improve R and L SLS time to 30s on uneven ) surface to improve balance and function STG Duration 6 weeks Shed Boss Goal (LTG) Pt will ascend/descend a flight of stairs (12) without use of HRs with reciprocal pattern LTG Duration 12 weeks Progress Towards Goals Progress Towards Progressing Toward Goals Goals Progress Comments reports less stiffness each morning Assessment Summary Assessment Pt demonstrates improvement in BLE strength and endurance and balance via SLS on foam, required many seated rest breaks d/t fatigue/dizziness this session. Advised pt to increase water intake. Physical Therapy Plan Frequency and Duration Frequency of 2-3x/wk Treatment Duration of 12 treatment (weeks) Plan of Care Start 01/18/25 Date Plan of Care End 04/12/25 Date Therapeutic Interventions Therapeutic Balance Training,Gait Training,Home Exercise Program, Interventions Joint Mobilizations,Manual Therapy,Neuromuscular Re- education,Patient/Caregiver Education,Soft Tissue Mobilization,Taping,Therapeutic Activities,Therapeutic Exercises Modalities Cold Pack/Ice Massage,Hot Packs,Infrared Therapy, Ultrasound Next Visit Focus/Plan Next Note Type Treatment Note Next Visit Plan standing hip hikes, sit<>stands from 12 box, HS curls
--- NOTE | 2025-02-13 16:07 | PT.OTN ---
Current Diagnoses Osteoarthritis of knee, unspecified (02/13/25) Pain in right knee (02/13/25) Pain in left knee (02/13/25) Physical Therapy Treatment Note PT-OP-A Visit Information Start: 01/18/25 15:16 Freq: Status: Active Protocol: Document 02/13/25 15:14 AB (Rec: 02/13/25 16:06 AB Laptop) Out-Patient Physical Therapy Visit Information Visit Information Visit Type Treatment Note Visit Start Time 15:18 Visit Stop Time 16:02 Visit Number 7 Number of INFORMATICS NURSE Visits 1 Evaluation Information Evaluation Date 01/18/25 Precautions Precautions N/A PT-OP-B Current Condition Start: 01/18/25 15:16 Freq: Status: Active Protocol: Document 01/18/25 15:17 RECREATION PROGRAM SPECIALIST (Rec: 01/18/25 17:32 RECREATION PROGRAM SPECIALIST Laptop) Current Condition History of Current Condition Onset Date >5 years ago Current Complaints B knee pain and inability to kneel and squat History of 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 She feels limited in her knees. R knee has history of meniscus tear in 1992 without surgical repair, but over the past 5 years both knees have been hurting. Pt feels limited with gardening: kneeling down to weed. Is doing Silver Sneakers program a few times a week but the focus is on exercises in sitting or standing and not transitional movements. Pt reports she walks a lot each day on flat ground and has no problems, but has been avoiding elevation/uneven ground. On a daily basis reports no pain, 6/10 when kneeling, 4/10 when sitting with BLEs extended and supported after watching TV for an hour. Treatment Goals Patient/Caregiver To be able to able to weed in garden and transfer on Goals and off floor to play with grandchildren. To walk up 1 flight of stairs without holding on to railing. PT-OP-C Subjective Start: 01/18/25 15:16 Freq: Status: Active Protocol: Document 02/13/25 15:14 AB (Rec: 02/13/25 16:06 AB Laptop) OP-PT Subjective Patient Comments Patient Comments Patient reports she wants to go over resistance band exercises. Patient reports having no pain start of session. PT-OP-D Balance Start: 01/18/25 15:16 Freq: Status: Active Protocol: Document 01/18/25 15:17 RECREATION PROGRAM SPECIALIST (Rec: 01/18/25 17:32 RECREATION PROGRAM SPECIALIST Laptop) Balance Tests Single Limb Standing Single Limb- Right 10s with mod-high instability alt medial-lateral foot Single Limb- Left 16s with min-mod instability alt medial-lateral foot PT-OP-K Range of Motion Start: 01/18/25 15:16 Freq: Status: Active Protocol: Document 01/18/25 15:17 RECREATION PROGRAM SPECIALIST (Rec: 01/18/25 17:32 RECREATION PROGRAM SPECIALIST Laptop) Hip Goniometric Range of Motion Hip ROM Limitations Hip ROM Limitations Soft Tissue Tightness Comments 90/90 test for HS length R: 145 degrees L: 152 degrees Heel to buttock test for quad length R: 16 L: 10.5 Knee Goniometric Range of Motion Knee L Patient Position Supine Flexion Active ( 120 degrees) Extension Passive ( 3 degrees) Comments no pain with knee flex R Patient Position Supine Flexion Active ( 110 degrees) Extension Passive ( 5 degrees) Comments pain with knee flex PT-OP-M Strength Start: 01/18/25 15:16 Freq: Status: Active Protocol: Document 01/18/25 15:17 RECREATION PROGRAM SPECIALIST (Rec: 01/18/25 17:32 RECREATION PROGRAM SPECIALIST Laptop) Hip Strength Hip Manual Muscle Testing L Flexion (L2) 4+ Good+ Extension (S1) 3- Fair- Abduction 4 Good External Rotation 4 Good Internal Rotation 4+ Good+ R Flexion (L2) 4 Good Extension (S1) 3- Fair- Abduction 4- Good- External Rotation 4- Good- Internal Rotation 4+ Good+ Knee Strength Knee Manual Muscle Testing L Flexion (S2) 4 Good Extension (L3) 4+ Good+ R Flexion (S2) 4+ Good+ Extension (L3) 4+ Good+ Ankle/Foot Strength Ankle and Foot Manual Muscle Testing L Dorsiflexion (L4) 4+ Good+ Comments x5 single leg heel raises with moderate difficulty R Dorsiflexion (L4) 5 Normal Comments x5 single leg heel raises with minimal difficulty on last 3 PT-OP-Q Treatments Start: 01/18/25 15:16 Freq: Status: Active Protocol: Document 02/13/25 15:14 AB (Rec: 02/13/25 16:06 AB Laptop) Cardio Equipment Recumbent Bicycle Duration (Minutes) 8 Resistance L6 Seat Position 5 Other bike for warm up Therapeutic Exercises Supine Exercises Stretch Supine Exercise Name Hip flexors off end of table Side bilateral Reps/Minutes 60sx1 each LE with AROM knee flexion Comments Verbal cues Sitting Exercises seated hip abd with band Side bilateral Resistance level 4 band Reps/Minutes one min X 1 Comments Verbal and visual cues Sit<>Stands Sitting Exercise 12 inch box Name Equipment Used L2 TB Reps/Minutes X 10 Comments initiates without band inc PPT end ROM Standing Exercises HS stretch Standing Exercise 90/90 from hooklying R standing at step L Name Side bilateral Reps/Minutes 1 min x1 each LE Comments L lacking 21 deg right 15 deg 90/90 position Hip Ext Standing Exercise HEP progression Name Side bilateral Resistance L1 TB Equipment Used support surface Reps/Minutes x10 Hip Abd Standing Exercise HEP progression Name Side bilateral Equipment Used support surface Reps/Minutes X 15 Comments VC to avoid toe PT-OP-T Assessment and Plan Start: 01/18/25 15:16 Freq: Status: Active Protocol: Document 02/13/25 15:14 AB (Rec: 02/13/25 16:06 AB Laptop) Physical Therapy Assessment Goals 3 Impairment Strength Impairment Decreased BLE strength Short Term Goal (STG Pt will demonstrate improved hip strength by performing ) x10 consecutive sit<>stands from 12 step without UEs STG Duration 6 weeks [facility] Goal (LTG) Pt will demonstrate improved hip strength by performing R and L half kneel to standing x3 consecutive each leg without UE support LTG Duration 12 weeks 2 Impairment Knee ROM Impairment Inability to kneel and squat onto floor Short Term Goal (STG Pt will demonstrate improved R quad flexibility with ) prone heel to buttock length from 16 to 10 to improve function STG Duration 6 weeks [employer] Maker Goal (LTG) Pt will demonstrate improved B quad flexibility with prone heel to buttock length <or=6 to improve function LTG Duration 12 weeks 1 Impairment Balance Impairment SLS/stairs Short Term Goal (STG Pt will improve R and L SLS time to 30s on uneven ) surface to improve balance and function STG Duration 6 weeks [employer] Maker Goal (LTG) Pt will ascend/descend a flight of stairs (12) without use of HRs with reciprocal pattern LTG Duration 12 weeks Assessment Summary Assessment Inc post pelvic tilt when reaching 12 inch box during squats, increased hip add when performed without band. Patient reports having no pain during ex. HS stiffness L LE may be contributing to PPT during squats. Physical Therapy Plan Frequency and Duration Frequency of 2-3x/wk Treatment Duration of 12 treatment (weeks) Plan of Care Start 01/18/25 Date Plan of Care End 04/12/25 Date Next Visit Focus/Plan Next Note Type Treatment Note Next Visit Plan standing hip hikes, continue monitor form sit<>stands from 12 box, HS curls/vs single leg lift for ecc hamstring
--- NOTE | 2025-02-15 16:44 | PT.OTN ---
Current Diagnoses Osteoarthritis of knee, unspecified (02/15/25) Pain in right knee (02/15/25) Pain in left knee (02/15/25) Physical Therapy Treatment Note PT-OP-A Visit Information Start: 01/18/25 15:16 Freq: Status: Active Protocol: Document 02/15/25 15:20 SALT REFINER (Rec: 02/15/25 16:42 SALT REFINER Laptop) Out-Patient Physical Therapy Visit Information Visit Information Visit Type Progress Note Visit Start Time 15:22 Visit Stop Time 16:15 Visit Number 8 Number of CERTIFIED BREASTFEEDING EDUCATOR Visits 0 Evaluation Information Evaluation Date 01/18/25 Precautions Precautions N/A PT-OP-B Current Condition Start: 01/18/25 15:16 Freq: Status: Active Protocol: Document 01/18/25 15:17 SALT REFINER (Rec: 01/18/25 17:32 SALT REFINER Laptop) Current Condition History of Current Condition Onset Date >5 years ago Current Complaints B knee pain and inability to kneel and squat History of 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 She feels limited in her knees. R knee has history of meniscus tear in 1992 without surgical repair, but over the past 5 years both knees have been hurting. Pt feels limited with gardening: kneeling down to weed. Is doing Silver Sneakers program a few times a week but the focus is on exercises in sitting or standing and not transitional movements. Pt reports she walks a lot each day on flat ground and has no problems, but has been avoiding elevation/uneven ground. On a daily basis reports no pain, 6/10 when kneeling, 4/10 when sitting with BLEs extended and supported after watching TV for an hour. Treatment Goals Patient/Caregiver To be able to able to weed in garden and transfer on Goals and off floor to play with grandchildren. To walk up 1 flight of stairs without holding on to railing. PT-OP-C Subjective Start: 01/18/25 15:16 Freq: Status: Active Protocol: Document 02/15/25 15:20 SALT REFINER (Rec: 02/15/25 16:42 SALT REFINER Laptop) OP-PT Subjective Patient Comments Patient Comments Pt reports 0 pain today. Pt reports a little soreness in B quads after last session. PT-OP-D Balance Start: 01/18/25 15:16 Freq: Status: Active Protocol: Document 02/15/25 15:20 SALT REFINER (Rec: 02/15/25 16:42 SALT REFINER Laptop) Balance Tests Single Limb Standing Single Limb- Right 1 min 4s even surface, 8s on foam Single Limb- Left 31s even surface, 10s on foam PT-OP-K Range of Motion Start: 01/18/25 15:16 Freq: Status: Active Protocol: Document 02/15/25 15:20 SALT REFINER (Rec: 02/15/25 16:42 SALT REFINER Laptop) Hip Goniometric Range of Motion Hip ROM Limitations Hip ROM Limitations Soft Tissue Tightness Comments Heel to buttock test for quad length R: 10 L: 8 PT-OP-M Strength Start: 01/18/25 15:16 Freq: Status: Active Protocol: Document 02/15/25 15:20 SALT REFINER (Rec: 02/15/25 16:42 SALT REFINER Laptop) Hip Strength Hip Manual Muscle Testing L Flexion (L2) 4+ Good+ Extension (S1) 4 Good Abduction 4+ Good+ External Rotation 4+ Good+ Internal Rotation 5 Normal R Flexion (L2) 4+ Good+ Extension (S1) 4+ Good+ Abduction 4+ Good+ External Rotation 4+ Good+ Internal Rotation 5 Normal Knee Strength Knee Manual Muscle Testing L Flexion (S2) 5 Normal Extension (L3) 5 Normal R Flexion (S2) 5 Normal Extension (L3) 4+ Good+ Ankle/Foot Strength Ankle and Foot Manual Muscle Testing L Dorsiflexion (L4) 4+ Good+ Comments x5 single leg heel raises with moderate difficulty R Dorsiflexion (L4) 5 Normal Comments x5 single leg heel raises with minimal difficulty on last 3 PT-OP-Q Treatments Start: 01/18/25 15:16 Freq: Status: Active Protocol: Document 02/15/25 15:20 SALT REFINER (Rec: 02/15/25 16:42 SALT REFINER Laptop) Cardio Equipment Recumbent Bicycle Duration (Minutes) 9 Resistance L11 Seat Position 5 Other bike for warm up Therapeutic Exercises Sitting Exercises seated hip abd with band Side bilateral Resistance level 4 band Reps/Minutes one min X 1 Sit<>Stands Sitting Exercise 12 inch box Name Reps/Minutes X 10 Comments increased PPT, VC to keep chest up, use of BUEs on box Neuro Re-Education Treatment Balance Activities Stance on foam Details SLS Surface foam Equipment HRs for safety Comments Multiple trials without UE support: Even surface highest times: R 1 min 4s, L 31s Foam: R 8s, 10s Improved after sustained resisted hip abd PT-OP-T Assessment and Plan Start: 01/18/25 15:16 Freq: Status: Active Protocol: Document 02/15/25 15:20 SALT REFINER (Rec: 02/15/25 16:42 SALT REFINER Laptop) Physical Therapy Assessment Goals 3 Impairment Strength Impairment Decreased BLE strength Short Term Goal (STG Pt will demonstrate improved hip strength by performing ) x10 consecutive sit<>stands from 12 step without UEs Status: Progressing 02/15 STG Duration 6 weeks Nursing Home Goal (LTG) Pt will demonstrate improved hip strength by performing R and L half kneel to standing x3 consecutive each leg without UE support LTG Duration 12 weeks 2 Impairment Knee ROM Impairment Inability to kneel and squat onto floor Short Term Goal (STG Pt will demonstrate improved R quad flexibility with ) prone heel to buttock length from 16 to 10 to improve function Status: MET 02/15 STG Duration 6 weeks Nursing Home Goal (LTG) Pt will demonstrate improved B quad flexibility with prone heel to buttock length <or=6 to improve function LTG Duration 12 weeks 1 Impairment Balance Impairment SLS/stairs Short Term Goal (STG Pt will improve R and L SLS time to 30s on uneven ) surface to improve balance and function Status: Progressing 02/15 STG Duration 6 weeks Nursing Home Goal (LTG) Pt will ascend/descend a flight of stairs (12) without use of HRs with reciprocal pattern LTG Duration 12 weeks Progress Towards Goals Progress Towards Progressing Toward Goals Goals Progress Comments met 1/3 STGs Assessment Summary Assessment Pt met 1/3 short term goals but demonstrated significant progress towards them compared to evaluation. Pt did not yet meet strength goal d/t use of BUEs to push off of 12 box and with decreased form and did not yet meet balance goal on foam but met on even surface, time improved after sustained hip abd against L2 TB to activate B glute meds. Continue skilled PT to continue progressing towards goals. Physical Therapy Plan Frequency and Duration Frequency of 2-3x/wk Treatment Duration of 12 treatment (weeks) Plan of Care Start 01/18/25 Date Plan of Care End 04/12/25 Date Therapeutic Interventions Therapeutic Balance Training,Gait Training,Home Exercise Program, Interventions Joint Mobilizations,Manual Therapy,Neuromuscular Re- education,Patient/Caregiver Education,Soft Tissue Mobilization,Taping,Therapeutic Activities,Therapeutic Exercises Modalities Cold Pack/Ice Massage,Hot Packs,Infrared Therapy, Ultrasound Next Visit Focus/Plan Next Note Type Treatment Note Next Visit Plan standing hip hikes, squat form, HS curls/vs single leg lift for ecc hamstring, balance activities on foam , L single leg bridges
--- NOTE | 2025-02-20 17:57 | PT.OTN ---
Current Diagnoses Osteoarthritis of knee, unspecified (02/20/25) Pain in right knee (02/20/25) Pain in left knee (02/20/25) Physical Therapy Treatment Note PT-OP-A Visit Information Start: 01/18/25 15:16 Freq: Status: Active Protocol: Document 02/20/25 16:17 AB (Rec: 02/20/25 17:57 AB Laptop) Out-Patient Physical Therapy Visit Information Visit Information Visit Type Treatment Note Visit Start Time 16:19 Visit Stop Time 17:01 Visit Number 9 Number of DRYING MACHINE RECEIVER Visits 1 Evaluation Information Evaluation Date 01/18/25 Precautions Precautions N/A PT-OP-B Current Condition Start: 01/18/25 15:16 Freq: Status: Active Protocol: Document 01/18/25 15:17 CRITICAL CARE NURSE (Rec: 01/18/25 17:32 CRITICAL CARE NURSE Laptop) Current Condition History of Current Condition Onset Date >5 years ago Current Complaints B knee pain and inability to kneel and squat History of 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 She feels limited in her knees. R knee has history of meniscus tear in 1992 without surgical repair, but over the past 5 years both knees have been hurting. Pt feels limited with gardening: kneeling down to weed. Is doing Silver Sneakers program a few times a week but the focus is on exercises in sitting or standing and not transitional movements. Pt reports she walks a lot each day on flat ground and has no problems, but has been avoiding elevation/uneven ground. On a daily basis reports no pain, 6/10 when kneeling, 4/10 when sitting with BLEs extended and supported after watching TV for an hour. Treatment Goals Patient/Caregiver To be able to able to weed in garden and transfer on Goals and off floor to play with grandchildren. To walk up 1 flight of stairs without holding on to railing. PT-OP-C Subjective Start: 01/18/25 15:16 Freq: Status: Active Protocol: Document 02/20/25 16:17 AB (Rec: 02/20/25 17:57 AB Laptop) OP-PT Subjective Patient Comments Patient Comments Patient reports she is doing well. Patient reports nothing is a problem, everything is fine. Patient reports the stretch opening the cabinet door to position foot is going well, missed the hamstring stretch. Patient reports able to ascend 12/14 stairs at the pool without UE use. PT-OP-D Balance Start: 01/18/25 15:16 Freq: Status: Active Protocol: Document 02/15/25 15:20 CRITICAL CARE NURSE (Rec: 02/15/25 16:42 CRITICAL CARE NURSE Laptop) Balance Tests Single Limb Standing Single Limb- Right 1 min 4s even surface, 8s on foam Single Limb- Left 31s even surface, 10s on foam PT-OP-K Range of Motion Start: 01/18/25 15:16 Freq: Status: Active Protocol: Document 02/15/25 15:20 CRITICAL CARE NURSE (Rec: 02/15/25 16:42 CRITICAL CARE NURSE Laptop) Hip Goniometric Range of Motion Hip ROM Limitations Hip ROM Limitations Soft Tissue Tightness Comments Heel to buttock test for quad length R: 10 L: 8 PT-OP-M Strength Start: 01/18/25 15:16 Freq: Status: Active Protocol: Document 02/15/25 15:20 CRITICAL CARE NURSE (Rec: 02/15/25 16:42 CRITICAL CARE NURSE Laptop) Hip Strength Hip Manual Muscle Testing L Flexion (L2) 4+ Good+ Extension (S1) 4 Good Abduction 4+ Good+ External Rotation 4+ Good+ Internal Rotation 5 Normal R Flexion (L2) 4+ Good+ Extension (S1) 4+ Good+ Abduction 4+ Good+ External Rotation 4+ Good+ Internal Rotation 5 Normal Knee Strength Knee Manual Muscle Testing L Flexion (S2) 5 Normal Extension (L3) 5 Normal R Flexion (S2) 5 Normal Extension (L3) 4+ Good+ Ankle/Foot Strength Ankle and Foot Manual Muscle Testing L Dorsiflexion (L4) 4+ Good+ Comments x5 single leg heel raises with moderate difficulty R Dorsiflexion (L4) 5 Normal Comments x5 single leg heel raises with minimal difficulty on last 3 PT-OP-Q Treatments Start: 01/18/25 15:16 Freq: Status: Active Protocol: Document 02/20/25 16:17 AB (Rec: 02/20/25 17:57 AB Laptop) Cardio Equipment Recumbent Bicycle Duration (Minutes) 6 Resistance L11 Seat Position 5 Other bike for warm up Gym Equipment Shuttle Recovery single leg Details unstable Resistance 25 Reps/Time X 15 1. Details L1 TB around knees for glute med targeting Resistance 50# Shuttle Recovery Stable Platform Reps/Time 20 Therapeutic Exercises Sitting Exercises Sit<>Stands Sitting Exercise 12 inch box Name Equipment Used Level 2 band Reps/Minutes X 3 Comments limited by pain this session Standing Exercises step ups Standing Exercise 6 inch step with one UE use HEP Name Side bilateral Reps/Minutes X 10 each Comments monitored for pain step downs Standing Exercise 6 inch and 4 inch step ( with UE use) Name Side right Reps/Minutes X 3 each step Comments not kyra Lunges Side bilateral Reps/Minutes 10 feet X 2 post training Comments Verbal and visual cues and use of self tactile cues for hip hinge HS stretch Standing Exercise 90/90 from hooklying R standing at step L Name Side bilateral Reps/Minutes 1 min x2 each LE Comments L lacking 21 deg right 18 deg 90/90 position Hip Ext Standing Exercise HEP progression Name Side bilateral Resistance L2 TB Equipment Used support surface Reps/Minutes 15X 2 Comments with UE support Hip Abd Standing Exercise HEP progression Name Side bilateral Resistance Level 2 Equipment Used support surface Reps/Minutes X 15 X2 Comments VC to avoid toe PT-OP-T Assessment and Plan Start: 01/18/25 15:16 Freq: Status: Active Protocol: Document 02/20/25 16:17 AB (Rec: 02/20/25 17:57 AB Laptop) Physical Therapy Assessment Goals 3 Impairment Strength Impairment Decreased BLE strength Short Term Goal (STG Pt will demonstrate improved hip strength by performing ) x10 consecutive sit<>stands from 12 step without UEs Status: Progressing 02/15 STG Duration 6 weeks Demolition Crane Operator Goal (LTG) Pt will demonstrate improved hip strength by performing R and L half kneel to standing x3 consecutive each leg without UE support LTG Duration 12 weeks 2 Impairment Knee ROM Impairment Inability to kneel and squat onto floor Short Term Goal (STG Pt will demonstrate improved R quad flexibility with ) prone heel to buttock length from 16 to 10 to improve function Status: MET 02/15 STG Duration 6 weeks Demolition Crane Operator Goal (LTG) Pt will demonstrate improved B quad flexibility with prone heel to buttock length <or=6 to improve function LTG Duration 12 weeks 1 Impairment Balance Impairment SLS/stairs Short Term Goal (STG Pt will improve R and L SLS time to 30s on uneven ) surface to improve balance and function Status: Progressing 02/15 STG Duration 6 weeks [facility]dc Goal (LTG) Pt will ascend/descend a flight of stairs (12) without use of HRs with reciprocal pattern LTG Duration 12 weeks Assessment Summary Assessment Patient kyra band increase to level 2 for standing hip ext and abd, did not kyra lunges, squats to 12 inch box, step downs, but did kyra step ups on 6 inch step Physical Therapy Plan Frequency and Duration Frequency of 2-3x/wk Treatment Duration of 12 treatment (weeks) Plan of Care Start 01/18/25 Date Plan of Care End 04/12/25 Date Next Visit Focus/Plan Next Note Type Treatment Note Next Visit Plan standing hip hikes, squat form, HS curls/vs single leg lift for ecc hamstring, balance activities on foam , L single leg bridges
--- NOTE | 2025-02-22 19:50 | PT.OTN ---
Current Diagnoses Osteoarthritis of knee, unspecified (02/22/25) Pain in right knee (02/22/25) Pain in left knee (02/22/25) Physical Therapy Treatment Note PT-OP-A Visit Information Start: 01/18/25 15:16 Freq: Status: Active Protocol: Document 02/22/25 15:24 DIGITAL EXPERIENCE MANAGER (Rec: 02/22/25 16:20 DIGITAL EXPERIENCE MANAGER Laptop) Out-Patient Physical Therapy Visit Information Visit Information Visit Type Treatment Note Visit Start Time 15:22 Visit Stop Time 16:01 Visit Number 10 Number of ENGINEER SERGEANT Visits 0 Evaluation Information Evaluation Date 01/18/25 Precautions Precautions N/A PT-OP-B Current Condition Start: 01/18/25 15:16 Freq: Status: Active Protocol: Document 01/18/25 15:17 DIGITAL EXPERIENCE MANAGER (Rec: 01/18/25 17:32 DIGITAL EXPERIENCE MANAGER Laptop) Current Condition History of Current Condition Onset Date >5 years ago Current Complaints B knee pain and inability to kneel and squat History of 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 She feels limited in her knees. R knee has history of meniscus tear in 1992 without surgical repair, but over the past 5 years both knees have been hurting. Pt feels limited with gardening: kneeling down to weed. Is doing Silver Sneakers program a few times a week but the focus is on exercises in sitting or standing and not transitional movements. Pt reports she walks a lot each day on flat ground and has no problems, but has been avoiding elevation/uneven ground. On a daily basis reports no pain, 6/10 when kneeling, 4/10 when sitting with BLEs extended and supported after watching TV for an hour. Treatment Goals Patient/Caregiver To be able to able to weed in garden and transfer on Goals and off floor to play with grandchildren. To walk up 1 flight of stairs without holding on to railing. PT-OP-C Subjective Start: 01/18/25 15:16 Freq: Status: Active Protocol: Document 02/22/25 15:24 DIGITAL EXPERIENCE MANAGER (Rec: 02/25/25 11:25 DIGITAL EXPERIENCE MANAGER Laptop) OP-PT Subjective Patient Comments Patient Comments Pt reports increased pain in knees last session and after last session but improved to 010 pain yesterday and this session. Patient Reported Improving Progress PT-OP-D Balance Start: 01/18/25 15:16 Freq: Status: Active Protocol: Document 02/15/25 15:20 DIGITAL EXPERIENCE MANAGER (Rec: 02/15/25 16:42 DIGITAL EXPERIENCE MANAGER Laptop) Balance Tests Single Limb Standing Single Limb- Right 1 min 4s even surface, 8s on foam Single Limb- Left 31s even surface, 10s on foam PT-OP-K Range of Motion Start: 01/18/25 15:16 Freq: Status: Active Protocol: Document 02/15/25 15:20 DIGITAL EXPERIENCE MANAGER (Rec: 02/15/25 16:42 DIGITAL EXPERIENCE MANAGER Laptop) Hip Goniometric Range of Motion Hip ROM Limitations Hip ROM Limitations Soft Tissue Tightness Comments Heel to buttock test for quad length R: 10 L: 8 PT-OP-M Strength Start: 01/18/25 15:16 Freq: Status: Active Protocol: Document 02/15/25 15:20 DIGITAL EXPERIENCE MANAGER (Rec: 02/15/25 16:42 DIGITAL EXPERIENCE MANAGER Laptop) Hip Strength Hip Manual Muscle Testing L Flexion (L2) 4+ Good+ Extension (S1) 4 Good Abduction 4+ Good+ External Rotation 4+ Good+ Internal Rotation 5 Normal R Flexion (L2) 4+ Good+ Extension (S1) 4+ Good+ Abduction 4+ Good+ External Rotation 4+ Good+ Internal Rotation 5 Normal Knee Strength Knee Manual Muscle Testing L Flexion (S2) 5 Normal Extension (L3) 5 Normal R Flexion (S2) 5 Normal Extension (L3) 4+ Good+ Ankle/Foot Strength Ankle and Foot Manual Muscle Testing L Dorsiflexion (L4) 4+ Good+ Comments x5 single leg heel raises with moderate difficulty R Dorsiflexion (L4) 5 Normal Comments x5 single leg heel raises with minimal difficulty on last 3 PT-OP-Q Treatments Start: 01/18/25 15:16 Freq: Status: Active Protocol: Document 02/22/25 15:24 DIGITAL EXPERIENCE MANAGER (Rec: 02/22/25 16:20 DIGITAL EXPERIENCE MANAGER Laptop) Cardio Equipment Recumbent Bicycle Duration (Minutes) 8 Resistance 11 Other bike for warm up Therapeutic Exercises Sitting Exercises Sit<>Stands Sitting Exercise 17 mat table with VC for hip hinge Name Equipment Used Level 2 band Reps/Minutes 10x2 Comments pain free Standing Exercises Hip hike Side bilateral Equipment Used 4 stair with HR Reps/Minutes x15 R side, x12+3 L side step ups Standing Exercise 6 inch step with one UE use, added opposite leg lift to Name challenge balance Side bilateral Reps/Minutes X 10 each PT-OP-T Assessment and Plan Start: 01/18/25 15:16 Freq: Status: Active Protocol: Document 02/22/25 15:24 DIGITAL EXPERIENCE MANAGER (Rec: 02/22/25 16:20 DIGITAL EXPERIENCE MANAGER Laptop) Physical Therapy Assessment Goals 3 Impairment Strength Impairment Decreased BLE strength Short Term Goal (STG Pt will demonstrate improved hip strength by performing ) x10 consecutive sit<>stands from 12 step without UEs Status: Progressing 02/15 STG Duration 6 weeks Prison Goal (LTG) Pt will demonstrate improved hip strength by performing R and L half kneel to standing x3 consecutive each leg without UE support LTG Duration 12 weeks 2 Impairment Knee ROM Impairment Inability to kneel and squat onto floor Short Term Goal (STG Pt will demonstrate improved R quad flexibility with ) prone heel to buttock length from 16 to 10 to improve function Status: MET 02/15 STG Duration 6 weeks Prison Goal (LTG) Pt will demonstrate improved B quad flexibility with prone heel to buttock length <or=6 to improve function LTG Duration 12 weeks 1 Impairment Balance Impairment SLS/stairs Short Term Goal (STG Pt will improve R and L SLS time to 30s on uneven ) surface to improve balance and function Status: Progressing 02/15 STG Duration 6 weeks Coreroom Foundry Laborer Goal (LTG) Pt will ascend/descend a flight of stairs (12) without use of HRs with reciprocal pattern LTG Duration 12 weeks Assessment Summary Assessment No increased pain this session with closed chain BLE strengthening Physical Therapy Plan Frequency and Duration Frequency of 2-3x/wk Treatment Duration of 12 treatment (weeks) Plan of Care Start 01/18/25 Date Plan of Care End 04/12/25 Date Therapeutic Interventions Therapeutic Balance Training,Gait Training,Home Exercise Program, Interventions Joint Mobilizations,Manual Therapy,Neuromuscular Re- education,Patient/Caregiver Education,Soft Tissue Mobilization,Taping,Therapeutic Activities,Therapeutic Exercises Modalities Cold Pack/Ice Massage,Hot Packs,Infrared Therapy, Ultrasound Next Visit Focus/Plan Next Note Type Treatment Note Next Visit Plan standing hip hikes, squat form, HS curls/vs single leg lift for ecc hamstring, balance activities on foam , L single leg bridges
--- NOTE | 2025-02-27 17:57 | PT.OTN ---
Current Diagnoses Osteoarthritis of knee, unspecified (02/27/25) Pain in right knee (02/27/25) Pain in left knee (02/27/25) Physical Therapy Treatment Note PT-OP-A Visit Information Start: 01/18/25 15:16 Freq: Status: Active Protocol: Document 02/27/25 17:05 AB (Rec: 02/27/25 17:54 AB [id number]) Out-Patient Physical Therapy Visit Information Visit Information Visit Type Treatment Note Visit Note Visit [email or web address]: [email or web address] Visit Start Time 17:05 Visit Stop Time 17:47 Visit Number 11 (PN due by 03/17/2025) Number of PRESIDENT ERGONOMIC CONSULTING Visits 1 Evaluation Information Evaluation Date 01/18/25 Precautions Precautions N/A PT-OP-B Current Condition Start: 01/18/25 15:16 Freq: Status: Active Protocol: Document 01/18/25 15:17 EMR IMPLEMENTATION SPECIALIST (Rec: 01/18/25 17:32 EMR IMPLEMENTATION SPECIALIST Laptop) Current Condition History of Current Condition Onset Date >5 years ago Current Complaints B knee pain and inability to kneel and squat History of 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 She feels limited in her knees. R knee has history of meniscus tear in 1992 without surgical repair, but over the past 5 years both knees have been hurting. Pt feels limited with gardening: kneeling down to weed. Is doing Silver Sneakers program a few times a week but the focus is on exercises in sitting or standing and not transitional movements. Pt reports she walks a lot each day on flat ground and has no problems, but has been avoiding elevation/uneven ground. On a daily basis reports no pain, 6/10 when kneeling, 4/10 when sitting with BLEs extended and supported after watching TV for an hour. Treatment Goals Patient/Caregiver To be able to able to weed in garden and transfer on Goals and off floor to play with grandchildren. To walk up 1 flight of stairs without holding on to railing. PT-OP-C Subjective Start: 01/18/25 15:16 Freq: Status: Active Protocol: Document 02/27/25 17:05 AB (Rec: 02/27/25 17:54 AB [id number]) OP-PT Subjective Patient Comments Patient Comments Patient reports she is the same, but something good happened, [place] and was able to walk to a viewpoint, without stopping. Patient comments her balance felt better, and going downhill feel as unsteady as previously. Patient reports she wasn't sore post. ( one mile out one mile back ) Patient rates pain 0/10 start of session. PT-OP-D Balance Start: 01/18/25 15:16 Freq: Status: Active Protocol: Document 02/15/25 15:20 EMR IMPLEMENTATION SPECIALIST (Rec: 02/15/25 16:42 EMR IMPLEMENTATION SPECIALIST Laptop) Balance Tests Single Limb Standing Single Limb- Right 1 min 4s even surface, 8s on foam Single Limb- Left 31s even surface, 10s on foam PT-OP-K Range of Motion Start: 01/18/25 15:16 Freq: Status: Active Protocol: Document 02/15/25 15:20 EMR IMPLEMENTATION SPECIALIST (Rec: 02/15/25 16:42 EMR IMPLEMENTATION SPECIALIST Laptop) Hip Goniometric Range of Motion Hip ROM Limitations Hip ROM Limitations Soft Tissue Tightness Comments Heel to buttock test for quad length R: 10 L: 8 PT-OP-M Strength Start: 01/18/25 15:16 Freq: Status: Active Protocol: Document 02/15/25 15:20 EMR IMPLEMENTATION SPECIALIST (Rec: 02/15/25 16:42 EMR IMPLEMENTATION SPECIALIST Laptop) Hip Strength Hip Manual Muscle Testing L Flexion (L2) 4+ Good+ Extension (S1) 4 Good Abduction 4+ Good+ External Rotation 4+ Good+ Internal Rotation 5 Normal R Flexion (L2) 4+ Good+ Extension (S1) 4+ Good+ Abduction 4+ Good+ External Rotation 4+ Good+ Internal Rotation 5 Normal Knee Strength Knee Manual Muscle Testing L Flexion (S2) 5 Normal Extension (L3) 5 Normal R Flexion (S2) 5 Normal Extension (L3) 4+ Good+ Ankle/Foot Strength Ankle and Foot Manual Muscle Testing L Dorsiflexion (L4) 4+ Good+ Comments x5 single leg heel raises with moderate difficulty R Dorsiflexion (L4) 5 Normal Comments x5 single leg heel raises with minimal difficulty on last 3 PT-OP-Q Treatments Start: 01/18/25 15:16 Freq: Status: Active Protocol: Document 02/27/25 17:05 AB (Rec: 02/27/25 17:54 AB [id number]) Cardio Equipment Recumbent Bicycle Duration (Minutes) 7 Resistance 11 Seat Position 5 Other bike for warm up Therapeutic Exercises Standing Exercises forward T Standing Exercise reaching to mat at chair seat height Name Reps/Minutes X 10 each LE Comments verbal and visual cues single leg heel raise Standing Exercise HEP Name Side bilateral Reps/Minutes X 14 each LE Comments PT ed rationale lowering heels slowly step ups Standing Exercise 6 inch step with one UE use, added opposite leg lift to Name challenge balance Side bilateral Reps/Minutes X 15 each Comments monitored for pain Neuro Re-Education Treatment Balance Activities Hurdles Reps/Duration 10 feet X 4 Comments hands above bars supervision tandem stepping Details hands above bars Reps/Duration 10 feet X 6 Comments supervision step up taps Details to 6 inch step standing on foam Reps/Duration X 10 CGA Stance on foam Details SLS, Romberg, mod tandem Surface foam Equipment CGA initiates with hands above bars Comments head turns with Romberg and mod tandem PT-OP-T Assessment and Plan Start: 01/18/25 15:16 Freq: Status: Active Protocol: Document 02/27/25 17:05 AB (Rec: 02/27/25 17:54 AB [id number]) Physical Therapy Assessment Goals 3 Impairment Strength Impairment Decreased BLE strength Short Term Goal (STG Pt will demonstrate improved hip strength by performing ) x10 consecutive sit<>stands from 12 step without UEs Status: Progressing 02/15 STG Duration 6 weeks Pen[facility]entiary Goal (LTG) Pt will demonstrate improved hip strength by performing R and L half kneel to standing x3 consecutive each leg without UE support LTG Duration 12 weeks 2 Impairment Knee ROM Impairment Inability to kneel and squat onto floor Short Term Goal (STG Pt will demonstrate improved R quad flexibility with ) prone heel to buttock length from 16 to 10 to improve function Status: MET 02/15 STG Duration 6 weeks Penitentiary Goal (LTG) Pt will demonstrate improved B quad flexibility with prone heel to buttock length <or=6 to improve function LTG Duration 12 weeks 1 Impairment Balance Impairment SLS/stairs Short Term Goal (STG Pt will improve R and L SLS time to 30s on uneven ) surface to improve balance and function Status: Progressing 02/15 STG Duration 6 weeks Staff Development Nurse Goal (LTG) Pt will ascend/descend a flight of stairs (12) without use of HRs with reciprocal pattern LTG Duration 12 weeks Assessment Summary Assessment No complaints of pain throughout session. HEP progressed with weight bearing Strengthening/ activation exercises. Physical Therapy Plan Frequency and Duration Frequency of 2-3x/wk Treatment Duration of 12 treatment (weeks) Plan of Care Start 01/18/25 Date Plan of Care End 04/12/25 Date Next Visit Focus/Plan Next Note Type Treatment Note Next Visit Plan standing hip hikes, squat form, HS curls/vs single leg lift for ecc hamstring, balance activities on foam , L single leg bridges
--- NOTE | 2025-02-27 17:57 | PT.OTN ---
Current Diagnoses Osteoarthritis of knee, unspecified (02/27/25) Pain in right knee (02/27/25) Pain in left knee (02/27/25) Physical Therapy Treatment Note PT-OP-A Visit Information Start: 01/18/25 15:16 Freq: Status: Active Protocol: Document 02/27/25 17:05 AB (Rec: 02/27/25 17:54 AB [id number]) Out-Patient Physical Therapy Visit Information Visit Information Visit Type Treatment Note Visit Note Visit [email or web address] Access Code: [email or web address] Visit Start Time 17:05 Visit Stop Time 17:47 Visit Number 11 (PN due by 03/17/2025) Number of OPHTHALMIC PATHOLOGIST Visits 1 Evaluation Information Evaluation Date 01/18/25 Precautions Precautions N/A PT-OP-B Current Condition Start: 01/18/25 15:16 Freq: Status: Active Protocol: Document 01/18/25 15:17 CHRISTIAN MINISTRIES PROFESSOR (Rec: 01/18/25 17:32 CHRISTIAN MINISTRIES PROFESSOR Laptop) Current Condition History of Current Condition Onset Date >5 years ago Current Complaints B knee pain and inability to kneel and squat History of 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 She feels limited in her knees. R knee has history of meniscus tear in 1992 without surgical repair, but over the past 5 years both knees have been hurting. Pt feels limited with gardening: kneeling down to weed. Is doing Silver Sneakers program a few times a week but the focus is on exercises in sitting or standing and not transitional movements. Pt reports she walks a lot each day on flat ground and has no problems, but has been avoiding elevation/uneven ground. On a daily basis reports no pain, 6/10 when kneeling, 4/10 when sitting with BLEs extended and supported after watching TV for an hour. Treatment Goals Patient/Caregiver To be able to able to weed in garden and transfer on Goals and off floor to play with grandchildren. To walk up 1 flight of stairs without holding on to railing. PT-OP-C Subjective Start: 01/18/25 15:16 Freq: Status: Active Protocol: Document 02/27/25 17:05 AB (Rec: 02/27/25 17:54 AB [id number]) OP-PT Subjective Patient Comments Patient Comments Patient reports she is the same, but something good happened, [place] and was able to walk to a viewpoint, without stopping. Patient comments her balance felt better, and going downhill feel as unsteady as previously. Patient reports she wasn't sore post. ( one mile out one mile back ) Patient rates pain 0/10 start of session. PT-OP-D Balance Start: 01/18/25 15:16 Freq: Status: Active Protocol: Document 02/15/25 15:20 CHRISTIAN MINISTRIES PROFESSOR (Rec: 02/15/25 16:42 CHRISTIAN MINISTRIES PROFESSOR Laptop) Balance Tests Single Limb Standing Single Limb- Right 1 min 4s even surface, 8s on foam Single Limb- Left 31s even surface, 10s on foam PT-OP-K Range of Motion Start: 01/18/25 15:16 Freq: Status: Active Protocol: Document 02/15/25 15:20 CHRISTIAN MINISTRIES PROFESSOR (Rec: 02/15/25 16:42 CHRISTIAN MINISTRIES PROFESSOR Laptop) Hip Goniometric Range of Motion Hip ROM Limitations Hip ROM Limitations Soft Tissue Tightness Comments Heel to buttock test for quad length R: 10 L: 8 PT-OP-M Strength Start: 01/18/25 15:16 Freq: Status: Active Protocol: Document 02/15/25 15:20 CHRISTIAN MINISTRIES PROFESSOR (Rec: 02/15/25 16:42 CHRISTIAN MINISTRIES PROFESSOR Laptop) Hip Strength Hip Manual Muscle Testing L Flexion (L2) 4+ Good+ Extension (S1) 4 Good Abduction 4+ Good+ External Rotation 4+ Good+ Internal Rotation 5 Normal R Flexion (L2) 4+ Good+ Extension (S1) 4+ Good+ Abduction 4+ Good+ External Rotation 4+ Good+ Internal Rotation 5 Normal Knee Strength Knee Manual Muscle Testing L Flexion (S2) 5 Normal Extension (L3) 5 Normal R Flexion (S2) 5 Normal Extension (L3) 4+ Good+ Ankle/Foot Strength Ankle and Foot Manual Muscle Testing L Dorsiflexion (L4) 4+ Good+ Comments x5 single leg heel raises with moderate difficulty R Dorsiflexion (L4) 5 Normal Comments x5 single leg heel raises with minimal difficulty on last 3 PT-OP-Q Treatments Start: 01/18/25 15:16 Freq: Status: Active Protocol: Document 02/27/25 17:05 AB (Rec: 02/27/25 17:54 AB [id number]) Cardio Equipment Recumbent Bicycle Duration (Minutes) 7 Resistance 11 Seat Position 5 Other bike for warm up Therapeutic Exercises Standing Exercises forward T Standing Exercise reaching to mat at chair seat height Name Reps/Minutes X 10 each LE Comments verbal and visual cues single leg heel raise Standing Exercise HEP Name Side bilateral Reps/Minutes X 14 each LE Comments PT ed rationale lowering heels slowly step ups Standing Exercise 6 inch step with one UE use, added opposite leg lift to Name challenge balance Side bilateral Reps/Minutes X 15 each Comments monitored for pain Neuro Re-Education Treatment Balance Activities Hurdles Reps/Duration 10 feet X 4 Comments hands above bars supervision tandem stepping Details hands above bars Reps/Duration 10 feet X 6 Comments supervision step up taps Details to 6 inch step standing on foam Reps/Duration X 10 CGA Stance on foam Details SLS, Romberg, mod tandem Surface foam Equipment CGA initiates with hands above bars Comments head turns with Romberg and mod tandem PT-OP-T Assessment and Plan Start: 01/18/25 15:16 Freq: Status: Active Protocol: Document 02/27/25 17:05 AB (Rec: 02/27/25 17:54 AB [id number]) Physical Therapy Assessment Goals 3 Impairment Strength Impairment Decreased BLE strength Short Term Goal (STG Pt will demonstrate improved hip strength by performing ) x10 consecutive sit<>stands from 12 step without UEs Status: Progressing 02/15 STG Duration 6 weeks Assisted Goal (LTG) Pt will demonstrate improved hip strength by performing R and L half kneel to standing x3 consecutive each leg without UE support LTG Duration 12 weeks 2 Impairment Knee ROM Impairment Inability to kneel and squat onto floor Short Term Goal (STG Pt will demonstrate improved R quad flexibility with ) prone heel to buttock length from 16 to 10 to improve function Status: MET 02/15 STG Duration 6 weeks Assisted Goal (LTG) Pt will demonstrate improved B quad flexibility with prone heel to buttock length <or=6 to improve function LTG Duration 12 weeks 1 Impairment Balance Impairment SLS/stairs Short Term Goal (STG Pt will improve R and L SLS time to 30s on uneven ) surface to improve balance and function Status: Progressing 02/15 STG Duration 6 weeks Residential Service Technician Goal (LTG) Pt will ascend/descend a flight of stairs (12) without use of HRs with reciprocal pattern LTG Duration 12 weeks Assessment Summary Assessment No complaints of pain throughout session. HEP progressed with weight bearing Strengthening/ activation exercises. Physical Therapy Plan Frequency and Duration Frequency of 2-3x/wk Treatment Duration of 12 treatment (weeks) Plan of Care Start 01/18/25 Date Plan of Care End 04/12/25 Date Next Visit Focus/Plan Next Note Type Treatment Note Next Visit Plan standing hip hikes, squat form, HS curls/vs single leg lift for ecc hamstring, balance activities on foam , L single leg bridges
--- NOTE | 2025-03-01 17:59 | PT.OTN ---
Current Diagnoses Osteoarthritis of knee, unspecified (03/01/25) Pain in right knee (03/01/25) Pain in left knee (03/01/25) Physical Therapy Treatment Note PT-OP-A Visit Information Start: 01/18/25 15:16 Freq: Status: Active Protocol: Document 03/01/25 16:57 AB (Rec: 03/01/25 17:57 AB [id number]) Out-Patient Physical Therapy Visit Information Visit Information Visit Type Treatment Note Visit Note Visit [email or web address] Access Code: [email or web address] Visit Start Time 17:03 Visit Stop Time 17:48 Visit Number 12 (PN due by 03/17/2025) Number of TABLE COVER FOLDER Visits 2 Evaluation Information Evaluation Date 01/18/25 Precautions Precautions N/A PT-OP-B Current Condition Start: 01/18/25 15:16 Freq: Status: Active Protocol: Document 01/18/25 15:17 CHAIR AND COUCH MAKER (Rec: 01/18/25 17:32 CHAIR AND COUCH MAKER Laptop) Current Condition History of Current Condition Onset Date >5 years ago Current Complaints B knee pain and inability to kneel and squat History of 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 She feels limited in her knees. R knee has history of meniscus tear in 1992 without surgical repair, but over the past 5 years both knees have been hurting. Pt feels limited with gardening: kneeling down to weed. Is doing Silver Sneakers program a few times a week but the focus is on exercises in sitting or standing and not transitional movements. Pt reports she walks a lot each day on flat ground and has no problems, but has been avoiding elevation/uneven ground. On a daily basis reports no pain, 6/10 when kneeling, 4/10 when sitting with BLEs extended and supported after watching TV for an hour. Treatment Goals Patient/Caregiver To be able to able to weed in garden and transfer on Goals and off floor to play with grandchildren. To walk up 1 flight of stairs without holding on to railing. PT-OP-C Subjective Start: 01/18/25 15:16 Freq: Status: Active Protocol: Document 03/01/25 16:57 AB (Rec: 03/01/25 17:57 AB [id number]) OP-PT Subjective Patient Comments Patient Comments Patient reports having leg cramps at night Wednesday, but not on the days after that, and has continued to perform heel raises. PT-OP-D Balance Start: 01/18/25 15:16 Freq: Status: Active Protocol: Document 02/15/25 15:20 CHAIR AND COUCH MAKER (Rec: 02/15/25 16:42 CHAIR AND COUCH MAKER Laptop) Balance Tests Single Limb Standing Single Limb- Right 1 min 4s even surface, 8s on foam Single Limb- Left 31s even surface, 10s on foam PT-OP-K Range of Motion Start: 01/18/25 15:16 Freq: Status: Active Protocol: Document 02/15/25 15:20 CHAIR AND COUCH MAKER (Rec: 02/15/25 16:42 CHAIR AND COUCH MAKER Laptop) Hip Goniometric Range of Motion Hip ROM Limitations Hip ROM Limitations Soft Tissue Tightness Comments Heel to buttock test for quad length R: 10 L: 8 PT-OP-M Strength Start: 01/18/25 15:16 Freq: Status: Active Protocol: Document 02/15/25 15:20 CHAIR AND COUCH MAKER (Rec: 02/15/25 16:42 CHAIR AND COUCH MAKER Laptop) Hip Strength Hip Manual Muscle Testing L Flexion (L2) 4+ Good+ Extension (S1) 4 Good Abduction 4+ Good+ External Rotation 4+ Good+ Internal Rotation 5 Normal R Flexion (L2) 4+ Good+ Extension (S1) 4+ Good+ Abduction 4+ Good+ External Rotation 4+ Good+ Internal Rotation 5 Normal Knee Strength Knee Manual Muscle Testing L Flexion (S2) 5 Normal Extension (L3) 5 Normal R Flexion (S2) 5 Normal Extension (L3) 4+ Good+ Ankle/Foot Strength Ankle and Foot Manual Muscle Testing L Dorsiflexion (L4) 4+ Good+ Comments x5 single leg heel raises with moderate difficulty R Dorsiflexion (L4) 5 Normal Comments x5 single leg heel raises with minimal difficulty on last 3 PT-OP-Q Treatments Start: 01/18/25 15:16 Freq: Status: Active Protocol: Document 03/01/25 16:57 AB (Rec: 03/01/25 17:57 AB [id number]) Cardio Equipment Recumbent Bicycle Duration (Minutes) 7 Resistance 11 Seat Position 5 Other bike for warm up Gym Equipment Shuttle Balance red Details normal ELIZABETH and stagger Comments with and without head turns Therapeutic Exercises Sitting Exercises seated hip abd with band Side bilateral Resistance level 4 band Reps/Minutes one min X 1 Sit<>Stands Sitting Exercise To webbed chair Name Side bilateral Resistance holding 3 lb weights Equipment Used Level band Reps/Minutes X 10 Comments VC for knees just past 90 deg with sit to stand Standing Exercises single leg heel raise Standing Exercise on stair this session Name Side bilateral Reps/Minutes X 10 each LE ( ~4X bilaterally) Comments PT ed rationale lowering heels slowly step downs Standing Exercise 4 inch step then in parallel bars focus on hip hinge Name with step fwd B UE sup Reps/Minutes X 2-3 each LE each position Comments Not kyra, difficutly with form improved with mirror/ pain persists Manual Therapy Treatment Taping bilateral knees Body Location Patella bilaterally Treatment Focus I strips med and lat emmy pat V to unload fat pad, and I pad imp track medi Type of Tape Kinesio Tape Skin Inspection WNL Comments Pt ed to remove tape in 3-5 days or immediately if skin irritation occurs Neuro Re-Education Treatment Balance Activities balance board Details AP and lateral Reps/Duration X 1-2 min each direction Comments hands above bars. tandem stepping Details hands above bars Reps/Duration 10 feet X 6 Comments supervision PT-OP-T Assessment and Plan Start: 01/18/25 15:16 Freq: Status: Active Protocol: Document 03/01/25 16:57 AB (Rec: 03/01/25 17:57 AB [id number]) Physical Therapy Assessment Goals 3 Impairment Strength Impairment Decreased BLE strength Short Term Goal (STG Pt will demonstrate improved hip strength by performing ) x10 consecutive sit<>stands from 12 step without UEs Status: Progressing 02/15 STG Duration 6 weeks Studio Set Up Worker Goal (LTG) Pt will demonstrate improved hip strength by performing R and L half kneel to standing x3 consecutive each leg without UE support LTG Duration 12 weeks 2 Impairment Knee ROM Impairment Inability to kneel and squat onto floor Short Term Goal (STG Pt will demonstrate improved R quad flexibility with ) prone heel to buttock length from 16 to 10 to improve function Status: MET 02/15 STG Duration 6 weeks Studio Set Up Worker Goal (LTG) Pt will demonstrate improved B quad flexibility with prone heel to buttock length <or=6 to improve function LTG Duration 12 weeks 1 Impairment Balance Impairment SLS/stairs Short Term Goal (STG Pt will improve R and L SLS time to 30s on uneven ) surface to improve balance and function Status: Progressing 02/15 STG Duration 6 weeks Studio Set Up Worker Goal (LTG) Pt will ascend/descend a flight of stairs (12) without use of HRs with reciprocal pattern LTG Duration 12 weeks Assessment Summary Assessment Patient reports it feels good ambulation the ascending and descending stairs with tape in place. Increased difficulty with hip hinge, inc pelvic drop with step down. Physical Therapy Plan Frequency and Duration Frequency of 2-3x/wk Treatment Duration of 12 treatment (weeks) Plan of Care Start 01/18/25 Date Plan of Care End 04/12/25 Date Next Visit Focus/Plan Next Note Type Treatment Note Next Visit Plan standing hip hikes, squat form, HS curls, balance activities on foam, L single leg bridges
--- NOTE | 2025-03-20 19:39 | PT.OTN ---
Current Diagnoses Osteoarthritis of knee, unspecified (03/20/25) Pain in right knee (03/20/25) Pain in left knee (03/20/25) Physical Therapy Treatment Note PT-OP-A Visit Information Start: 01/18/25 15:16 Freq: Status: Active Protocol: Document 03/20/25 17:18 LEAD CUSTODIAN (Rec: 03/20/25 19:38 LEAD CUSTODIAN Laptop) Out-Patient Physical Therapy Visit Information Visit Information Visit Type Progress Note Visit Start Time 17:08 Visit Stop Time 17:59 Visit Number [id number] Number of IGNITION SPECIALIST Visits 0 Evaluation Information Evaluation Date 01/18/25 PT-OP-B Current Condition Start: 01/18/25 15:16 Freq: Status: Active Protocol: Document 01/18/25 15:17 LEAD CUSTODIAN (Rec: 01/18/25 17:32 LEAD CUSTODIAN Laptop) Current Condition History of Current Condition Onset Date >5 years ago Current Complaints B knee pain and inability to kneel and squat History of 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 She feels limited in her knees. R knee has history of meniscus tear in 1992 without surgical repair, but over the past 5 years both knees have been hurting. Pt feels limited with gardening: kneeling down to weed. Is doing Silver Sneakers program a few times a week but the focus is on exercises in sitting or standing and not transitional movements. Pt reports she walks a lot each day on flat ground and has no problems, but has been avoiding elevation/uneven ground. On a daily basis reports no pain, 6/10 when kneeling, 4/10 when sitting with BLEs extended and supported after watching TV for an hour. Treatment Goals Patient/Caregiver To be able to able to weed in garden and transfer on Goals and off floor to play with grandchildren. To walk up 1 flight of stairs without holding on to railing. PT-OP-C Subjective Start: 01/18/25 15:16 Freq: Status: Active Protocol: Document 03/20/25 17:18 LEAD CUSTODIAN (Rec: 03/20/25 19:38 LEAD CUSTODIAN Laptop) OP-PT Subjective Patient Comments Patient Comments Pt was unable to get an appointment with PT for past 2 weeks d/t scheduling and does not feel like she has lost progress as she has been working on her HEP (not all but a few exercises) and has been going more frequently to her exercise classes. Pt has 2 more sessions left and would like to D/C at last session. PT-OP-D Balance Start: 01/18/25 15:16 Freq: Status: Active Protocol: Document 02/15/25 15:20 LEAD CUSTODIAN (Rec: 02/15/25 16:42 LEAD CUSTODIAN Laptop) Balance Tests Single Limb Standing Single Limb- Right 1 min 4s even surface, 8s on foam Single Limb- Left 31s even surface, 10s on foam PT-OP-K Range of Motion Start: 01/18/25 15:16 Freq: Status: Active Protocol: Document 02/15/25 15:20 LEAD CUSTODIAN (Rec: 02/15/25 16:42 LEAD CUSTODIAN Laptop) Hip Goniometric Range of Motion Hip ROM Limitations Hip ROM Limitations Soft Tissue Tightness Comments Heel to buttock test for quad length R: 10 L: 8 PT-OP-M Strength Start: 01/18/25 15:16 Freq: Status: Active Protocol: Document 02/15/25 15:20 LEAD CUSTODIAN (Rec: 02/15/25 16:42 LEAD CUSTODIAN Laptop) Hip Strength Hip Manual Muscle Testing L Flexion (L2) 4+ Good+ Extension (S1) 4 Good Abduction 4+ Good+ External Rotation 4+ Good+ Internal Rotation 5 Normal R Flexion (L2) 4+ Good+ Extension (S1) 4+ Good+ Abduction 4+ Good+ External Rotation 4+ Good+ Internal Rotation 5 Normal Knee Strength Knee Manual Muscle Testing L Flexion (S2) 5 Normal Extension (L3) 5 Normal R Flexion (S2) 5 Normal Extension (L3) 4+ Good+ Ankle/Foot Strength Ankle and Foot Manual Muscle Testing L Dorsiflexion (L4) 4+ Good+ Comments x5 single leg heel raises with moderate difficulty R Dorsiflexion (L4) 5 Normal Comments x5 single leg heel raises with minimal difficulty on last 3 PT-OP-Q Treatments Start: 01/18/25 15:16 Freq: Status: Active Protocol: Document 03/20/25 17:18 LEAD CUSTODIAN (Rec: 03/20/25 19:38 LEAD CUSTODIAN Laptop) Therapeutic Exercises Sitting Exercises seated hip abd with band Side bilateral Resistance level 4 band Reps/Minutes one min X 1 Comments prior to SLS for glute med activation Sit<>Stands Sitting Exercise 1. 16 box with 2 foam 2. 16 box Name Equipment Used squeezing small ball between knees Reps/Minutes 1. x5 2. x10 Comments slight hip hinge Standing Exercises Half kneel to stand Side bilateral Equipment Used foam yoga mat, table to support on Reps/Minutes x3 each side Comments performed with light 1UE support for RLE and mod-high 1UE support for LLE Other Exercises HEP compliance Reps/Minutes 10 mins Comments discussed strategies for routine and HEP compliance after D/C Neuro Re-Education Treatment Balance Activities SLS Comments L 14s even surface, 14s on foam R 50s even surface, 15s on foam PT-OP-T Assessment and Plan Start: 01/18/25 15:16 Freq: Status: Active Protocol: Document 03/20/25 17:18 LEAD CUSTODIAN (Rec: 03/20/25 19:38 LEAD CUSTODIAN Laptop) Physical Therapy Assessment Goals 3 Impairment Strength Impairment Decreased BLE strength Short Term Goal (STG Pt will demonstrate improved hip strength by performing ) x10 consecutive sit<>stands from 12 step without UEs Status: Progressing 02/15 03/20: Progressing, x10 from 16 box without STG Duration 6 weeks Usp Goal (LTG) Pt will demonstrate improved hip strength by performing R and L half kneel to standing x3 consecutive each leg without UE support 03/20: Progressing, performed with light 1UE support for RLE and mod-high 1UE support for LLE LTG Duration 12 weeks 2 Impairment Knee ROM Impairment Inability to kneel and squat onto floor Short Term Goal (STG Pt will demonstrate improved R quad flexibility with ) prone heel to buttock length from 16 to 10 to improve function Status: MET 02/15 STG Duration 6 weeks MET Usp Goal (LTG) Pt will demonstrate improved B quad flexibility with prone heel to buttock length <or=6 to improve function 03/20: Progressing, R 7.5, L 4.5 LTG Duration 12 weeks 1 Impairment Balance Impairment SLS/stairs Short Term Goal (STG Pt will improve R and L SLS time to 30s on uneven ) surface to improve balance and function Status: Progressing 02/15 03/20: Progressing, L 14s, R 15s on foam STG Duration 6 weeks Players Assistant Goal (LTG) Pt will ascend/descend a flight of stairs (12) without use of HRs with reciprocal pattern 03/20: Not assessed d/t fatigue LTG Duration 12 weeks Assessment Summary Assessment Pt has been progressing well towards goals despite taking 2 weeks off from PT. She has met 1/3 STGs and 0/ 3 LTGs but is close to meeting all. She reports she is happy with the current status she has obtained and would like to D/C next week on last appointment and focus on strategies for HEP compliance. Physical Therapy Plan Frequency and Duration Frequency of 2-3x/wk Treatment Duration of 12 treatment (weeks) Plan of Care Start 01/18/25 Date Plan of Care End 04/12/25 Date Therapeutic Interventions Therapeutic Balance Training,Gait Training,Home Exercise Program, Interventions Joint Mobilizations,Manual Therapy,Neuromuscular Re- education,Patient/Caregiver Education,Soft Tissue Mobilization,Taping,Therapeutic Activities,Therapeutic Exercises Modalities Cold Pack/Ice Massage,Hot Packs,Infrared Therapy, Ultrasound Next Visit Focus/Plan Next Note Type Treatment Note Next Visit Plan assess stair goal, lunges, STM to R quad, SLS, condense HEP for D/C
--- NOTE | 2025-03-22 18:05 | PT.OTN ---
Current Diagnoses Osteoarthritis of knee, unspecified (03/22/25) Pain in right knee (03/22/25) Pain in left knee (03/22/25) Physical Therapy Treatment Note PT-OP-A Visit Information Start: 01/18/25 15:16 Freq: Status: Active Protocol: Document 03/22/25 17:01 CONTACT OFFICER (Rec: 03/22/25 18:04 CONTACT OFFICER Laptop) Out-Patient Physical Therapy Visit Information Visit Information Visit Type Treatment Note Visit Start Time 17:03 Visit Stop Time 17:50 Visit Number 14/15 Number of MOBILE MARKETING SPECIALIST Visits 0 PT-OP-B Current Condition Start: 01/18/25 15:16 Freq: Status: Active Protocol: Document 01/18/25 15:17 CONTACT OFFICER (Rec: 01/18/25 17:32 CONTACT OFFICER Laptop) Current Condition History of Current Condition Onset Date >5 years ago Current Complaints B knee pain and inability to kneel and squat History of 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 She feels limited in her knees. R knee has history of meniscus tear in 1992 without surgical repair, but over the past 5 years both knees have been hurting. Pt feels limited with gardening: kneeling down to weed. Is doing [employer] program a few times a week but the focus is on exercises in sitting or standing and not transitional movements. Pt reports she walks a lot each day on flat ground and has no problems, but has been avoiding elevation/uneven ground. On a daily basis reports no pain, 6/10 when kneeling, 4/10 when sitting with BLEs extended and supported after watching TV for an hour. Treatment Goals Patient/Caregiver To be able to able to weed in garden and transfer on Goals and off floor to play with grandchildren. To walk up 1 flight of stairs without holding on to railing. PT-OP-C Subjective Start: 01/18/25 15:16 Freq: Status: Active Protocol: Document 03/22/25 17:01 CONTACT OFFICER (Rec: 03/22/25 18:04 CONTACT OFFICER Laptop) OP-PT Subjective Patient Comments Patient Comments Pt reports no adverse affects after last session, feeling tired but without pain to knees. Feels ready to D/C at next session and would like to learn about gym recommendations and HEP condensing at this session. PT-OP-D Balance Start: 01/18/25 15:16 Freq: Status: Active Protocol: Document 02/15/25 15:20 CONTACT OFFICER (Rec: 02/15/25 16:42 CONTACT OFFICER Laptop) Balance Tests Single Limb Standing Single Limb- Right 1 min 4s even surface, 8s on foam Single Limb- Left 31s even surface, 10s on foam PT-OP-K Range of Motion Start: 01/18/25 15:16 Freq: Status: Active Protocol: Document 02/15/25 15:20 CONTACT OFFICER (Rec: 02/15/25 16:42 CONTACT OFFICER Laptop) Hip Goniometric Range of Motion Hip ROM Limitations Hip ROM Limitations Soft Tissue Tightness Comments Heel to buttock test for quad length R: 10 L: 8 PT-OP-M Strength Start: 01/18/25 15:16 Freq: Status: Active Protocol: Document 02/15/25 15:20 CONTACT OFFICER (Rec: 02/15/25 16:42 CONTACT OFFICER Laptop) Hip Strength Hip Manual Muscle Testing L Flexion (L2) 4+ Good+ Extension (S1) 4 Good Abduction 4+ Good+ External Rotation 4+ Good+ Internal Rotation 5 Normal R Flexion (L2) 4+ Good+ Extension (S1) 4+ Good+ Abduction 4+ Good+ External Rotation 4+ Good+ Internal Rotation 5 Normal Knee Strength Knee Manual Muscle Testing L Flexion (S2) 5 Normal Extension (L3) 5 Normal R Flexion (S2) 5 Normal Extension (L3) 4+ Good+ Ankle/Foot Strength Ankle and Foot Manual Muscle Testing L Dorsiflexion (L4) 4+ Good+ Comments x5 single leg heel raises with moderate difficulty R Dorsiflexion (L4) 5 Normal Comments x5 single leg heel raises with minimal difficulty on last 3 PT-OP-Q Treatments Start: 01/18/25 15:16 Freq: Status: Active Protocol: Document 03/22/25 17:01 CONTACT OFFICER (Rec: 03/22/25 18:04 CONTACT OFFICER Laptop) Cardio Equipment Elliptical Duration (Minutes) 3 Resistance L2 Other education for how to use at gym after D/C Recumbent Bicycle Duration (Minutes) 14 Other discussed how to adjust time and resistance for growth each time Therapeutic Exercises Other Exercises HEP compliance Reps/Minutes 30 Comments condensed HEP, discussed further ways to improve compliance PT-OP-T Assessment and Plan Start: 01/18/25 15:16 Freq: Status: Active Protocol: Document 03/22/25 17:01 CONTACT OFFICER (Rec: 03/22/25 18:04 CONTACT OFFICER Laptop) Physical Therapy Assessment Goals 3 Impairment Strength Impairment Decreased BLE strength Short Term Goal (STG Pt will demonstrate improved hip strength by performing ) x10 consecutive sit<>stands from 12 step without UEs Status: Progressing 02/15 03/20: Progressing, x10 from 16 box without STG Duration 6 weeks Software Implementation Specialist Goal (LTG) Pt will demonstrate improved hip strength by performing R and L half kneel to standing x3 consecutive each leg without UE support 03/20: Progressing, performed with light 1UE support for RLE and mod-high 1UE support for LLE LTG Duration 12 weeks 2 Impairment Knee ROM Impairment Inability to kneel and squat onto floor Short Term Goal (STG Pt will demonstrate improved R quad flexibility with ) prone heel to buttock length from 16 to 10 to improve function Status: MET 02/15 STG Duration 6 weeks MET Software Implementation Specialist Goal (LTG) Pt will demonstrate improved B quad flexibility with prone heel to buttock length <or=6 to improve function 03/20: Progressing, R 7.5, L 4.5 LTG Duration 12 weeks 1 Impairment Balance Impairment SLS/stairs Short Term Goal (STG Pt will improve R and L SLS time to 30s on uneven ) surface to improve balance and function Status: Progressing 02/15 03/20: Progressing, L 14s, R 15s on foam STG Duration 6 weeks Software Implementation Specialist Goal (LTG) Pt will ascend/descend a flight of stairs (12) without use of HRs with reciprocal pattern 03/20: Not assessed d/t fatigue LTG Duration 12 weeks Assessment Summary Assessment This session spent educating on gym equipment for knowledge and confidence in gym after D/C to continue progressing including recommending bike, elliptical, yoga classes, and aquatic classes. Condensed HEP papers for increased compliance. Physical Therapy Plan Frequency and Duration Frequency of 2-3x/wk Treatment Duration of 12 treatment (weeks) Plan of Care Start 01/18/25 Date Plan of Care End 04/12/25 Date Next Visit Focus/Plan Next Note Type Discharge Summary Next Visit Plan review standing glute med activation and standing leg ext on HEP, re-assess goals.
--- NOTE | 2025-04-24 14:31 | PT.OPDS ---
Pt cancelled last appointment which was planned for D/C note without follow up to reschedule. Pt made significant progress towards PT goals of BLE strength, ROM, and balance. D/C PT with instructions given at previous appointments to return with new PT referral from doctor if feeling a functional decline. Pt demonstrated good knowledge and compliance of extensive HEP in order to maintain progress made with PT as well as community programs available in community. Will D/C pt from PT. Current Diagnoses Osteoarthritis of knee, unspecified (03/22/25) Pain in right knee (03/22/25) Pain in left knee (03/22/25) Visit Care Team Role Provider Type Laly Harvey DO Attending Provider Physician Family Provider Primary Care Provider Referring Provider Specialty: [facility] Practice Address: [address] [place] [address], [address], [facility] Email: [email or web address] Visit Number Visit Number Discharge Summary PT-OP-A Visit Information Start: 01/18/25 15:16 Freq: Status: Active Protocol: Document 03/22/25 17:01 CERTIFIED LEGAL INVESTIGATOR (Rec: 03/22/25 18:04 CERTIFIED LEGAL INVESTIGATOR Laptop) Out-Patient Physical Therapy Visit Information Visit Information Visit Type Treatment Note Visit Start Time 17:03 Visit Stop Time 17:50 Visit Number Number of TOTER Visits 0 PT-OP-B Current Condition Start: 01/18/25 15:16 Freq: Status: Active Protocol: Document 01/18/25 15:17 CERTIFIED LEGAL INVESTIGATOR (Rec: 01/18/25 17:32 CERTIFIED LEGAL INVESTIGATOR Laptop) Current Condition History of Current Condition Onset Date >5 years ago Current Complaints B knee pain and inability to kneel and squat History of 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 She feels limited in her knees. R knee has history of meniscus tear in 1992 without surgical repair, but over the past 5 years both knees have been hurting. Pt feels limited with gardening: kneeling down to weed. Is doing [employer] program a few times a week but the focus is on exercises in sitting or standing and not transitional movements. Pt reports she walks a lot each day on flat ground and has no problems, but has been avoiding elevation/uneven ground. On a daily basis reports no pain, 6/10 when kneeling, 4/10 when sitting with BLEs extended and supported after watching TV for an hour. Treatment Goals Patient/Caregiver To be able to able to weed in garden and transfer on Goals and off floor to play with grandchildren. To walk up 1 flight of stairs without holding on to railing. PT-OP-C Subjective Start: 01/18/25 15:16 Freq: Status: Active Protocol: Document 03/22/25 17:01 CERTIFIED LEGAL INVESTIGATOR (Rec: 03/22/25 18:04 CERTIFIED LEGAL INVESTIGATOR Laptop) OP-PT Subjective Patient Comments Patient Comments Pt reports no adverse affects after last session, feeling tired but without pain to knees. Feels ready to D/C at next session and would like to learn about gym recommendations and HEP condensing at this session. PT-OP-D Balance Start: 01/18/25 15:16 Freq: Status: Active Protocol: Document 02/15/25 15:20 CERTIFIED LEGAL INVESTIGATOR (Rec: 02/15/25 16:42 CERTIFIED LEGAL INVESTIGATOR Laptop) Balance Tests Single Limb Standing Single Limb- Right 1 min 4s even surface, 8s on foam Single Limb- Left 31s even surface, 10s on foam PT-OP-K Range of Motion Start: 01/18/25 15:16 Freq: Status: Active Protocol: Document 02/15/25 15:20 CERTIFIED LEGAL INVESTIGATOR (Rec: 02/15/25 16:42 CERTIFIED LEGAL INVESTIGATOR Laptop) Hip Goniometric Range of Motion Hip ROM Limitations Hip ROM Limitations Soft Tissue Tightness Comments Heel to buttock test for quad length R: 10 L: 8 PT-OP-M Strength Start: 01/18/25 15:16 Freq: Status: Active Protocol: Document 02/15/25 15:20 CERTIFIED LEGAL INVESTIGATOR (Rec: 02/15/25 16:42 CERTIFIED LEGAL INVESTIGATOR Laptop) Hip Strength Hip Manual Muscle Testing L Flexion (L2) 4+ Good+ Extension (S1) 4 Good Abduction 4+ Good+ External Rotation 4+ Good+ Internal Rotation 5 Normal R Flexion (L2) 4+ Good+ Extension (S1) 4+ Good+ Abduction 4+ Good+ External Rotation 4+ Good+ Internal Rotation 5 Normal Knee Strength Knee Manual Muscle Testing L Flexion (S2) 5 Normal Extension (L3) 5 Normal R Flexion (S2) 5 Normal Extension (L3) 4+ Good+ Ankle/Foot Strength Ankle and Foot Manual Muscle Testing L Dorsiflexion (L4) 4+ Good+ Comments x5 single leg heel raises with moderate difficulty R Dorsiflexion (L4) 5 Normal Comments x5 single leg heel raises with minimal difficulty on last 3 PT-OP-T Assessment and Plan Start: 01/18/25 15:16 Freq: Status: Active Protocol: Document 03/22/25 17:01 CERTIFIED LEGAL INVESTIGATOR (Rec: 03/22/25 18:04 CERTIFIED LEGAL INVESTIGATOR Laptop) Physical Therapy Assessment Goals 3 Impairment Strength Impairment Decreased BLE strength Short Term Goal (STG Pt will demonstrate improved hip strength by performing ) x10 consecutive sit<>stands from 12 step without UEs Status: Progressing 02/15 03/20: Progressing, x10 from 16 box without STG Duration 6 weeks Half-Way Goal (LTG) Pt will demonstrate improved hip strength by performing R and L half kneel to standing x3 consecutive each leg without UE support 03/20: Progressing, performed with light 1UE support for RLE and mod-high 1UE support for LLE LTG Duration 12 weeks 2 Impairment Knee ROM Impairment Inability to kneel and squat onto floor Short Term Goal (STG Pt will demonstrate improved R quad flexibility with ) prone heel to buttock length from 16 to 10 to improve function Status: MET 02/15 STG Duration 6 weeks MET Half-Way Goal (LTG) Pt will demonstrate improved B quad flexibility with prone heel to buttock length <or=6 to improve function 03/20: Progressing, R 7.5, L 4.5 LTG Duration 12 weeks 1 Impairment Balance Impairment SLS/stairs Short Term Goal (STG Pt will improve R and L SLS time to 30s on uneven ) surface to improve balance and function Status: Progressing 02/15 03/20: Progressing, L 14s, R 15s on foam STG Duration 6 weeks Half-Way Goal (LTG) Pt will ascend/descend a flight of stairs (12) without use of HRs with reciprocal pattern 03/20: Not assessed d/t fatigue LTG Duration 12 weeks Assessment Summary Assessment This session spent educating on gym equipment for knowledge and confidence in gym after D/C to continue progressing including recommending bike, elliptical, yoga classes, and aquatic classes. Condensed HEP papers for increased compliance. Physical Therapy Plan Frequency and Duration Frequency of 2-3x/wk Treatment Duration of 12 treatment (weeks) Plan of Care Start 01/18/25 Date Plan of Care End 04/12/25 Date Next Visit Focus/Plan Next Note Type Discharge Summary Next Visit Plan review standing glute med activation and standing leg ext on HEP, re-assess goals.
== END 2025-05-01 10:08 | disposition home or self-care (01) ==
LOC: PHYS 17:00
PROVIDERS: Family Provider Family Medicine; PCP Family Medicine; Referring Provider Family Medicine; Visit Provider Family Medicine
DX: M17.9 Osteoarthritis of knee, unspecified (principal); M25.561 Pain in right knee; M25.562 Pain in left knee
CPT/HCPCS: 97110; 97112; 97140; 97161